=== PATIENT | male | born 1960 | race Caucasian/White ===

== ENCOUNTER 2018-11-08 07:14 | Inpatient (IN) | payer OTHER ==
[2018-11-08 08:58] LABS: CKMB 74.9 ng/mL (0-6.6)
[2018-11-08] MEDS ORDERED: Cepastat Lozenges 1 LOZ PO PRN (10:25)
[2018-11-08] MEDS ORDERED: Zolpidem Tartrate 5 MG TAB PO PRN (10:25)
[2018-11-08] MEDS ORDERED: HYDROcodone/Acetaminophen 5/325 mg Tablet PO PRN (10:25)
[2018-11-08] MEDS ORDERED: Ondansetron ODT 4 MG TAB PO PRN (10:25)
[2018-11-08] MEDS ORDERED: Artificial Tears 18 DROP/0.9 ML EA EYE PRN (10:25)
[2018-11-08] MEDS ORDERED: Ondansetron PF 4 MG/2 ML Vial IVP PRN (10:25)
[2018-11-08] MEDS ORDERED: Acetaminophen 325 MG TAB PO PRN (10:25)
[2018-11-08] MEDS ORDERED: Nitroglycerin 0.4 MG TAB (25 Tab Bottle) SL PRN ×2 (10:25→17:44)
[2018-11-08] MEDS ORDERED: Loratadine 10 MG TAB PO PRN (10:25)
[2018-11-08] MEDS ORDERED: Diabetic Tussin 200 MG/10 ML UDCUP PO PRN (10:25)
[2018-11-08] MEDS ORDERED: Eucerin (Mineral Oil/Petrolatum,White) 30 gm Jar TOP PRN (10:25)
[2018-11-08] MEDS ORDERED: hydrALAZINE 20 MG/ML VIAL SLOW IVP PRN (10:25)
[2018-11-08] MEDS ORDERED: Sodium Chloride 0.65% Nasal 44 ML BOT EA NARE PRN (10:25)
[2018-11-08] MEDS ORDERED: Senokot S 8.6-50 MG TAB PO PRN (10:25)
[2018-11-08] MEDS ORDERED: Bisacodyl 10 MG SUPP PR PRN (10:25)
[2018-11-08] MEDS ORDERED: Calcium Carbonate 500 MG ChewTAB PO PRN (10:25)
[2018-11-08] MEDS ORDERED: Loperamide HCl 2 MG CAP PO PRN (10:25)
[2018-11-08] MEDS ORDERED: Enoxaparin Sodium 80 MG/0.8 ML SYRINGE SC SCH ×3 (10:30→21:00)
[2018-11-08] MEDS ORDERED: Iopamidol 370 76% 100 ML VIAL ONE (10:52)
--- NOTE | 2018-11-08 11:02 | HP ---
PRIMARY CARE PHYSICIAN: [facility]. His primary care physician is in [place], [place]. REASON FOR ADMISSION: Transferred from [facility] [facility] for [id number] MD. HISTORY OF PRESENT ILLNESS: A 57-year-old male, who has underlying history of hypertension as well as tobacco abuse disorder, who was having chest pain yesterday at 3:00 p.m. 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 After eating his lunch, he was having substernal chest pain, which he describes as a hollow feeling and it was dull persistent pain as well. He did not have any associated nausea, vomiting, diaphoresis, but he started feeling radiation of this pain to the left arm. He felt himself having had headache, but he was waiting to get better. He did not have any belching. He did not have any acid reflux symptoms. He denied any palpitation, dizziness, syncope, or shortness of breath, orthopnea, PND. Initially, his intensity of pain was around 5 to 7/10, which was persistent on and off up until 3:00 a.m. He decided to go to local emergency room in [place]. He drove by himself there. The patient was not able to sleep because of this discomfort. At [facility], his EKG showed incomplete right bundle-branch block pattern. His troponin was elevated and subsequently, he was given Lovenox, aspirin and nitroglycerin, and the patient was transferred to our hospital for further evaluation. In the emergency room, he was not having any further pain. The patient is heavy smoker and he has just stopped smoking this morning. He denies any other alcohol or illicit drug abuse. REVIEW OF SYSTEMS: CONSTITUTIONAL: Negative for weight loss or gain, ability to conduct usual activities. SKIN: Negative for rash, itching. EYES: Negative for double vision, pain. ENT/MOUTH: Negative for nose bleeding, neck stiffness, pain, tenderness. CARDIOVASCULAR: Negative for palpitations, dyspnea on exertion, orthopnea. RESPIRATORY: Negative for shortness of breath, wheezing, cough, hemoptysis, fever or night sweats. GASTROINTESTINAL: Negative for poor appetite, abdominal pain, heartburn, nausea, vomiting, constipation, or diarrhea. GENITOURINARY: Negative for urgency, frequency, dysuria, nocturia. MUSCULOSKELETAL: Negative for pain, swelling. NEUROLOGIC/PSYCHIATRIC: Negative for anxiety, depression. ALLERGY/IMMUNOLOGIC: Negative for skin rash, bleeding tendency. Please see my HPI for pertinent positives and negatives. All other review of systems reviewed and negative except as mentioned in HPI. PAST MEDICAL HISTORY: Hypertension, tobacco abuse disorder. PAST SURGICAL HISTORY: Herniated disk surgery in 1985. PAST PSYCHIATRIC HISTORY: Reviewed and negative. SOCIAL HISTORY: The patient is . He lives at home with his . He smokes about one pack per day. 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 He denies any alcohol or other illicit drug abuse. FAMILY HISTORY: His sister from cancer. His grandfather had heart attack in his old age. His mother from old age as well as his father had a motor vehicle accident. EMERGENCY ROOM COURSE: At [facility], the patient was given Lovenox 1 mg/kg, aspirin and nitroglycerin. CURRENT HOME MEDICATION: The patient is taking one antihypertensive medication, but he is not able to recall the name of medication. ALLERGIES: NO KNOWN DRUG ALLERGY. PHYSICAL EXAMINATION: VITAL SIGNS: On arrival, blood pressure 128/83, pulse 58, respiratory rate 16, temperature 98.1 saturation 96% on room air. Weight 85.7 kg. GENERAL: The patient is currently alert, awake, in no obvious acute distress. HEENT: Head; normocephalic, atraumatic. Eyes; pupils round, reactive to light. Extraocular muscle intact. ENT; oropharynx within normal limits. Moist mucous membranes. No oral lesion. No pharyngeal erythema. No exudate. NECK: Supple. No JVD. No thyromegaly. No carotid bruit. LUNGS: Clear to auscultation without any rhonchi or rales. CARDIAC: S1, S2 regular. No murmur. No gallop. No rub. ABDOMEN: Soft bowel sounds present. Nontender. Nondistended. No organomegaly. No mass. No suprapubic tenderness. BACK EXAMINATION: Unremarkable. No CVA tenderness. EXTREMITIES: Upper extremities, passive movement of all joints are normal. Lower extremity, no edema. No calf tenderness. Good distal pulsation. SKIN: No skin rash. HEMATOLOGICAL SYSTEM: No lymphadenopathy. PSYCHIATRIC: Normal affect. SIGNIFICANT LABORATORY DATA: EKG showing sinus bradycardia, incomplete right bundle-branch block pattern. Chest x-ray done over there, it was unremarkable. Blood test at [facility] showed sodium 139, potassium 3.8, chloride 105, carbon dioxide 23, BUN 18, creatinine 1.0, glucose 105. LFT, AST 26, ALT 24, alkaline phosphatase 72, bilirubin 0.5, albumin 4.4, protein 7.1. CBC; WBC 13.6, hemoglobin 17.2, platelet 212. Troponin 0.905. ASSESSMENT AND PLAN: 1. Dcy-TI-yxqbijbvx myocardial infarction. The patient's clinical history is consistent with typical anginal pain with elevated cardiac enzymes associated with mild ST-T changes consistent with non-ST elevation MD. At this point, the patient has been appropriately treated in [place] with aspirin, Lovenox and nitroglycerin patch, and currently patient is pain free. We will continue with Lovenox 1 mg/kg subcu twice daily. We will consult Cardiology for possible need of cardiac catheterization either today or tomorrow. We will obtain echocardiography. Meanwhile, we will continue with aspirin 325 mg p.o. daily, nitroglycerin patch q.8 hourly, Lipitor 40 mg p.o. at bedtime. Check lipid profile tomorrow morning for risk stratification. Healthy lifestyle measure discussed with the patient. 2. Hypertension, currently well controlled. Currently, patient has nitroglycerin patch as well as we are starting Coreg 6.25 mg p.o. b.i.d. 3. Tobacco abuse disorder. Smoking cessation counseling given. Healthy lifestyle measure discussed with the patient. 4. Deep venous thrombosis prophylaxis. The patient is already on full dose of Lovenox therapy. 5. Gastrointestinal prophylaxis. Pepcid 20 mg p.o. b.i.d. CODE STATUS: The patient is full code. The patient's is surrogate decision maker. DISPOSITION PLAN: Based on clinical course, likely 2 to 3 days. Job ID: [id number]
[2018-11-08 11:12] LABS: #Basophils 0.1 thou/uL (0.0-0.2); #Eosinphils 0.1 thou/uL (0.0-0.7); #Lymphocytes 3.1 thou/uL (1.20-3.40); #Monocytes 0.9 thou/uL (0.11-0.59); #Neutrophils 8.5 thou/uL (1.40-6.50); %Basophils 0.5 % (0.0-1.0); %Eosinophils 0.6 % (0.0-10.0); %Lymphocytes 24.3 % (21.0-51.0); %Monocytes 6.7 % (0.0-10.0); %Neutrophils 67.8 % (42.0-75.0); Hemoglobin 16.1 g/dL (14.0-18.0); Mean Corpuscular HGB CONC 33.4 g/dL (32.0-36.0); Mean Corpuscular Hemoglobin 30.6 pg (27.0-31.0); Mean Corpuscular Volume 91.7 fL (78.0-98.0); Mean Platelet Volume 7.4 fL (7.4-10.4); Platelet Count 201 thou/uL (130-400); RBC Distribution Width 11.9 % (11.5-14.5); Red Blood Cell (RBC) Count 5.25 mill/uL (4.70-6.10); White Blood Cell (WBC) Count 12.6 thou/uL (4.8-10.8)
[2018-11-08] MEDS ORDERED: Aspirin 325 mg Enteric Coated Tablet PO SCH (11:15)
[2018-11-08 11:37] LABS: ALT (SGPT) 25 U/L (8-55); AST (SGOT) 59 U/L (5-34); Albumin 4.1 g/dL (3.5-5.0); Alkaline Phosphatase 51 U/L (40-150); Anion Gap 11 mmol/L (10-20); BUN (Urea Nitrogen) 15 mg/dL (8.4-25.7); Bilirubin, Total 0.6 mg/dL (0.2-1.2); Calc. Creatinine Clearance 0 mL/min (70-130); Calcium 9.3 mg/dL (7.8-10.44); Carbon Dioxide 28 mmol/L (22-29); Chloride 105 mmol/L (98-107); Estimated GFR-MDRD 80; Globulin 2.3 g/dL (2.4-3.5); Glucose 97 mg/dL (70-105); Potassium 4.6 mmol/L (3.5-5.1); Protein, Total 6.4 g/dL (6.0-8.3); Sodium 139 mmol/L (136-145)
[2018-11-08 11:49] LABS: Troponin I 7.777 ng/mL (< 0.028)
[2018-11-08] MEDS ORDERED: Atorvastatin Calcium 40 MG TAB PO SCH ×2 (12:33→21:00)
[2018-11-08] MEDS ORDERED: Communication Order-Pharmacy FS SCH (15:00)
[2018-11-08] MEDS: Nitroglycerin 2% Ointment 1 INCH/1 GM Packet TOP SCH ×2 (15:22→20:44)
[2018-11-08] MEDS: Carvedilol 3.125 MG TAB PO SCH (16:49)
[2018-11-08] MEDS ORDERED: Carvedilol 6.25 MG TAB PO SCH (17:00)
[2018-11-08] MEDS ORDERED: Midazolam HCl 2 mg/2 ml Vial ONE (17:11)
[2018-11-08] MEDS ORDERED: Acetaminophen/Codeine 30-300mg Tablet PO PRN ×2 (17:44)
[2018-11-08] MEDS ORDERED: Sodium Chloride 0.9% 200 ML IV PRN (17:44)
[2018-11-08] MEDS ORDERED: Communication Order-Pharmacy FS ONE (18:26)
--- NOTE | 2018-11-08 18:52 | RAD ---
PORTABLE CHEST: 11/08/18 HISTORY: Preop open heart surgery. Heart size and mediastinum are within normal limits. The lungs are clear of infiltrates. No signs of failure. IMPRESSION: No active intrathoracic disease. POS: [facility]
[2018-11-08] MEDS ORDERED: Famotidine 20 MG TAB PO SCH (21:00)
--- NOTE | 2018-11-08 21:17 | CON ---
DATE OF CONSULTATION: 11/08/2018 HISTORY OF PRESENT ILLNESS: Mr. Putnam is a 57-year-old gentleman who was admitted this afternoon with chest pain, pressure, shortness of breath, and a non-ST elevation myocardial infarction. He received aspirin and 300 mg of Plavix and Lovenox at the [place] [facility]. He was transferred here for further therapy. He underwent cardiac catheterization on arrival. 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 He has a bypassable distal right/PDA target. He has at the LAD bifurcation approximately 80% lesion in the LAD and the diagonal. Both these arteries should be bypassable. EF on VGram is approximately 60%. I have discussed this with Dr. Deluna and reviewed the films with him. PAST MEDICAL HISTORY: 1. Hypertension. 2. Tobacco abuse. PAST SURGICAL HISTORY: Back surgery. CURRENT MEDICATIONS: Amlodipine 5 mg daily. ALLERGIES: NONE. 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 He is . He smokes 1 pack to 2 packs of cigarettes a day. REVIEW OF SYSTEMS: A 10-point review of systems is performed and negative except as above. PHYSICAL EXAMINATION: GENERAL: This is a well-developed, well-nourished, thin gentleman, resting comfortably in bed. VITAL SIGNS: Height 63 inches, weight 180 pounds. BSA is 2.08. HEENT: Sclerae nonicteric. Pupils are equal and round bilaterally. NECK: Supple without bruit. CHEST: Clear bilaterally with distant breath sounds. HEART: Rhythm is regular without murmur. ABDOMEN: Soft and nontender with no masses. EXTREMITIES: No cyanosis, clubbing, or edema. VASCULAR: He has palpable carotid radial, femoral, dorsalis pedis pulses bilaterally. VENOUS: There are no venous varicosities or venous stasis changes. PSYCHIATRIC : The patient is awake, alert, and oriented to person, place, and time. LABORATORY DATA: Of note, hemoglobin is 16.1, platelet count is 201,000. Potassium is 4.6, creatinine is 0.96. The peak troponin is 7.77. ASSESSMENT AND PLAN: This is a 57-year-old gentleman status post non-ST- elevation myocardial infarction. Risks, benefits and options of coronary bypass grafting have been discussed with him. He was given 300 mg of Plavix in [place]-I do not think it is prudent to wait the seven day wait for Plavix as he is at risk for further infarct events. I have discussed this with the patient and family. We will proceed tomorrow with coronary artery bypass grafting. Job ID: [id number] MTDD
--- NOTE | 2018-11-09 00:06 | CON ---
DATE OF CONSULTATION: 11/08/2018 HISTORY OF PRESENT ILLNESS: The patient is a 57-year-old gentleman, who presents for evaluation of chest discomfort. The patient has no previous cardiac history. He was in his usual state of health when he developed substernal chest discomfort. He states it lasted throughout the day and he eventually came to the emergency room. The patient eventually went to the emergency room in [place]. His chest pain resolved. He was transferred here for further evaluation. The patient denies having any present chest discomfort. PAST MEDICAL HISTORY: Hypertension. PAST SURGICAL HISTORY: None. SOCIAL HISTORY: The patient smokes one pack per day. ALLERGIES: NO KNOWN DRUG ALLERGIES. FAMILY HISTORY: No strong family history of coronary artery disease. REVIEW OF SYSTEMS: Ten-point system otherwise unremarkable. No history of easy bruising or bleeding. PHYSICAL EXAMINATION: GENERAL: Well-developed gentleman, in no acute distress. VITAL SIGNS: Blood pressure of 119/77. NECK: No jugular venous distention. LUNGS: Clear to auscultation. HEART: Regular rate and rhythm. Normal S1, S2. ABDOMEN: Nondistended. EXTREMITIES: Show no edema. SKIN: Warm and dry. NEUROLOGIC: Nonfocal. VASCULAR: Radial pulses 2+. LABORATORY RESULTS: Sodium 139, potassium 3.8, chloride 105, bicarbonate 23, BUN 18, creatinine is 1.0, glucose is 105. White blood cell count 13.6, hemoglobin 17.2, hematocrit 49.8, platelets 212. EKG revealed normal sinus rhythm with incomplete right bundle branch block. IMPRESSION: 1. Non-Q-wave myocardial infarction. 2. Hypertension. 3. Tobacco abuse. This gentleman presents with a non-Q-wave myocardial infarction. The patient has been treated with aspirin, Plavix, and Lovenox. The patient will undergo an invasive evaluation during this hospitalization to evaluate the extent of his coronary artery disease. The patient will also be treated with low-dose beta- babita. We will follow this patient with you. Job ID: [id number] MTDD
[2018-11-09] MEDS: Nitroglycerin 2% Ointment 1 INCH/1 GM Packet TOP SCH (05:10)
[2018-11-09] MEDS: Carvedilol 3.125 MG TAB PO SCH (05:10)
[2018-11-09 05:38] LABS: Cardiac Risk 5.2 (Less than 4.5)
[2018-11-09] MEDS ORDERED: Midazolam HCl 5 mg/5 ml Vial ONE ×2 (06:34→10:01)
[2018-11-09] MEDS ORDERED: Fentanyl 100 MCG/2 ML VIAL ONE (06:34)
[2018-11-09] MEDS ORDERED: Midazolam HCl 2 mg/2 ml Vial ONE (06:34)
[2018-11-09] MEDS ORDERED: Dexmedetomidine 200 MCG/2 ML VIAL ONE (06:35)
[2018-11-09] MEDS ORDERED: Vecuronium 10 MG VIAL ONE ×2 (06:35→13:47)
[2018-11-09] MEDS ORDERED: Aspirin 325 mg Enteric Coated Tablet PO SCH (09:00)
[2018-11-09] MEDS ORDERED: Dexamethasone 4 mg/ml Vial ONE (09:25)
[2018-11-09] MEDS ORDERED: Bupivacaine HCl 0.5%/Epinephrine 1:200,000/PF 30 ml Vial ONE (09:25)
--- NOTE | 2018-11-09 09:44 | PDOC.PN ---
- Subjective Encounter Start Date: 11/09/18 Encounter Start Time: 06:00 Patient seen and examined. No new complaints. No overnight events - Objective Resuscitation Status - Order Detail: 11/08/18 10:25 Resuscitation Status Routine Resuscitation Status: FULL: Full Resuscitation MAR Reviewed: Yes Vital Signs & Weight: Vital Signs (12 hours) Temp Pulse Resp BP Pulse Ox 11/09/18 03:19 98.1 F 71 16 105/68 94 L 11/09/18 00:00 98.2 F 62 18 106/63 93 L Weight Weight 178 lb 4.8 oz I&O: 11/08/18 11/09/18 11/10/18 06:59 06:59 06:59 Intake Total 360 Output Total 400 Balance -40 Result Diagrams: 11/08/18 11:02 11/08/18 11:02 Additional Labs: Accuchecks 11/09/18 11/09/18 11/09/18 09:35 08:44 08:18 POC Glucose 163 H 156 H 135 H EKG Reviewed by me: Yes (nsr) Phys Exam - Physical Examination Constitutional: NAD HEENT: PERRLA, moist MMs, sclera anicteric Neck: no JVD, supple Respiratory: no wheezing, no rales, no rhonchi Cardiovascular: RRR, no significant murmur, no rub Gastrointestinal: soft, non-tender, no distention, positive bowel sounds Musculoskeletal: no edema, pulses present Neurological: non-focal, normal sensation, moves all 4 limbs Lymphatic: no nodes Psychiatric: normal affect, A&O x 3 Skin: no rash, normal turgor Dx/Plan (1) CAD (coronary artery disease) Code(s): I25.10 - ATHSCL HEART DISEASE OF [place] CORONARY ARTERY W/O ANG PCTRS Status: Acute (2) NSTEMI (non-ST elevated myocardial infarction) Code(s): I21.4 - NON-ST ELEVATION (NSTEMI) MYOCARDIAL INFARCTION Status: Acute (3) Dyslipidemia Code(s): E78.5 - HYPERLIPIDEMIA, UNSPECIFIED Status: Chronic (4) Hypertension Code(s): I10 - ESSENTIAL (PRIMARY) HYPERTENSION Status: Chronic (5) Tobacco abuse Code(s): Z72.0 - TOBACCO USE Status: Chronic - Plan cont current plan of care * CABG today * after CABG continue post cabg protocol management as per CV surgery and cardiology * medication reviewed as below * symptomatic treatment. Review of Systems - Review of Systems ENT: negative: Ear Pain, Ear Discharge, Nose Pain, Nose Discharge, Nose Congestion, Mouth Pain, Mouth Swelling, Throat Pain, Throat Swelling, Other Respiratory: negative: Cough, Dry, Shortness of Breath, Hemoptysis, SOB with Excertion, Pleuritic Pain, Sputum, Wheezing Cardiovascular: negative: chest pain, palpitations, orthopnea, paroxysmal nocturnal dyspnea, edema, light headedness, other Gastrointestinal: negative: Nausea, Vomiting, Abdominal Pain, Diarrhea, Constipation, Melena, Hematochezia, Other Genitourinary: negative: Dysuria, Frequency, Incontinence, Hematuria, Retention , Other Musculoskeletal: negative: Neck Pain, Shoulder Pain, Arm Pain, Back Pain, Hand Pain, Leg Pain, Foot Pain, Other - Medications/Allergies Allergies/Adverse Reactions: Allergies Allergy/AdvReac Type Severity Reaction Status Date / Time No Known Drug Allergies Allergy Verified 11/08/18 15:19 Medications: Current Medications Carvedilol (Coreg) 3.125 mg PO BID-[facility] Stop: 11/09/18 10:00 Last Admin: 11/09/18 05:10 Dose: 3.125 mg
[2018-11-09] MEDS ORDERED: Propofol 1,000 MG/100 ML VIAL IV ONE ×2 (10:01→10:30)
[2018-11-09] MEDS ORDERED: PHENYLEPHRINE-NS 100 MCG/ML 10 ML SYRINGE ONE ×3 (10:30→13:47)
[2018-11-09] MEDS ORDERED: Albumin 25% 200 ML ONE (10:36)
[2018-11-09] MEDS ORDERED: Insulin Regular 300 UNITS/3 ML VIAL ONE ×2 (10:42→15:15)
[2018-11-09] MEDS ORDERED: Phenylephrine HCL 10 MG/ML VIAL ONE (11:58)
[2018-11-09] MEDS ORDERED: Amiodarone 150 MG/3 ML VIAL ONE (11:58)
[2018-11-09] MEDS ORDERED: Dexamethasone 20 MG/5 ML VIAL ONE (13:47)
[2018-11-09] MEDS ORDERED: Sodium Bicarb 50 MEQ/50 ML VIAL ONE ×2 (13:47)
[2018-11-09] MEDS ORDERED: Heparin 30,000 units/30 ml VIAL ONE (13:47)
[2018-11-09] MEDS ORDERED: Magnesium 5 GM/10 ML VIAL ONE ×2 (13:47)
[2018-11-09] MEDS ORDERED: Heparin 5,000 UNITS/ML VIAL ONE (13:47)
[2018-11-09] MEDS ORDERED: PROPOFOL 200 MG/20 ML VIAL ONE (13:47)
[2018-11-09] MEDS ORDERED: Lidocaine 2% PF 100 mg/5 ml Syringe ONE ×2 (13:47)
[2018-11-09] MEDS ORDERED: Esmolol 100 MG/10 ML VIAL ONE (13:47)
[2018-11-09] MEDS ORDERED: Cardioplegic Soln 1,000 ML BAG ONE (13:47)
[2018-11-09] MEDS ORDERED: Potassium Chloride 60 MEQ/30 ML VIAL ONE (13:47)
[2018-11-09] MEDS ORDERED: Calcium Chloride 1 GM/10 ML Abboject SYRINGE ONE (13:47)
[2018-11-09] MEDS ORDERED: Dextrose 50% Abboject 50 ML SYRINGE ONE (13:47)
[2018-11-09] MEDS ORDERED: Albumin 25% 25 GM/100 ML BOT ONE (13:47)
[2018-11-09] MEDS ORDERED: Papaverine 60 MG/2 ML VIAL ONE (13:47)
[2018-11-09] MEDS ORDERED: Thrombin 5000 UNITS/5 ML VIAL ONE (13:47)
[2018-11-09] MEDS ORDERED: ePHEDrine 50 MG/ML VIAL ONE (13:47)
[2018-11-09] MEDS ORDERED: Mannitol 12.5 GM/50 ML ONE ×2 (13:47)
[2018-11-09] MEDS ORDERED: Norepinephrine 4 MG/4 ML VIAL ONE (13:47)
[2018-11-09] MEDS ORDERED: Nitroglycerin 50 MG/250 ML BOT ONE (13:47)
[2018-11-09] MEDS ORDERED: Protamine Sulfate 250 MG/25 ML VIAL ONE ×2 (13:47)
[2018-11-09] MEDS ORDERED: Aminocaproic Acid 5 GM/20 ML VIAL ONE (13:47)
[2018-11-09 14:22] LABS: Actual Bicarbonate (HCO3a) 27.1 mEq/L (22-28); Base Excess (BEa) 0.1 mEq/L (-2.0 to +3.0); CO2 Tension 56.3 mmHg (35.0-45.0); Calcium, Ionized 0.99 mmol/L (1.12-1.30); Carboxyhemoglobin (COHb) 1.1 gm% (0.0-3.0); Hemoglobin (Hb) 10.6 g/dL (14.0-18.0); O2 Tension (PaO2) 89.3 mmHg (80.0-100.0); Potassium - ABG Lab 4.15 mmol/L (3.70-5.30)
[2018-11-09 14:27] LABS: Puncture Site LINE
[2018-11-09 14:28] LABS: ALV-art Gradient 125.525 (0-20)
[2018-11-09] MEDS ORDERED: HYDROcodone/Acetaminophen 5/325 mg Tablet PO PRN (14:51)
[2018-11-09] MEDS ORDERED: Norepinephrine 8 MG/0.9% NS 250 ML IVPB PRN (14:51)
[2018-11-09] MEDS ORDERED: Nitroglycerin 50 MG/250 ML BOT 250 ML IVPB PRN (14:51)
[2018-11-09] MEDS ORDERED: Promethazine HCl 25 MG/ML VIAL IM PRN (14:51)
[2018-11-09] MEDS ORDERED: Fentanyl 100 MCG/2 ML VIAL SLOW IVP PRN ×2 (14:51)
[2018-11-09] MEDS ORDERED: Bisacodyl 10 MG SUPP PR PRN (14:51)
[2018-11-09] MEDS ORDERED: CEFAZOLIN/Water 2 GM/20 ML SYRINGE SLOW IVP SCH (14:51)
[2018-11-09] MEDS ORDERED: Guaifenesin DM 100-10/5 ML UDCUP PO PRN (14:51)
[2018-11-09] MEDS ORDERED: Ondansetron PF 4 MG/2 ML Vial IVP PRN (14:51)
[2018-11-09] MEDS ORDERED: Hetastarch 6% 500 ML 500 ML IVPB PRN (14:51)
[2018-11-09] MEDS ORDERED: niCARdipine HCl 25 MG in Sodium Chloride 0.9% 250 ML 240 ML IVPB PRN (14:51)
[2018-11-09] MEDS ORDERED: Mag-Al 1200 mg/1200 mg/30 ML UDCUP PO PRN (14:51)
[2018-11-09] MEDS ORDERED: Morphine 2 MG/ML SYRINGE SLOW IVP PRN (14:51)
[2018-11-09] MEDS ORDERED: D5 1/2 NS w/20 mEq KCL 1,000 ML IV SCH (14:51)
[2018-11-09] MEDS ORDERED: Acetaminophen 325 MG TAB PO PRN (14:51)
[2018-11-09] MEDS ORDERED: Post-Op Insulin Drip Protocol IVPB ONE (14:51)
[2018-11-09 15:16] LABS: #Eosinphils 0.1 thou/uL (0.0-0.7); #Lymphocytes 1.1 thou/uL (1.20-3.40); #Monocytes 1.2 thou/uL (0.11-0.59); %Eosinophils 0.6 % (0.0-10.0); %Lymphocytes 7.2 % (21.0-51.0); %Monocytes 7.5 % (0.0-10.0); %Neutrophils 84.6 % (42.0-75.0); Hemoglobin 9.9 g/dL (14.0-18.0); Mean Corpuscular HGB CONC 33.9 g/dL (32.0-36.0); Mean Corpuscular Hemoglobin 31.3 pg (27.0-31.0); Mean Corpuscular Volume 92.5 fL (78.0-98.0); Mean Platelet Volume 7.4 fL (7.4-10.4); Platelet Count 128 thou/uL (130-400); RBC Distribution Width 11.8 % (11.5-14.5); Red Blood Cell (RBC) Count 3.16 mill/uL (4.70-6.10); White Blood Cell (WBC) Count 15.4 thou/uL (4.8-10.8)
[2018-11-09] MEDS ORDERED: D5 1/2 NS w/20 mEq KCL 1,000 ML ONE (15:17)
[2018-11-09 15:21] LABS: INR-International Normal Ratio 1.5; PTT 42.4 SEC (22.9-36.1); Prothrombin Time 17.9 SEC (12.0-14.7)
[2018-11-09 15:30] LABS: Anion Gap 13 mmol/L (10-20); BUN (Urea Nitrogen) 14 mg/dL (8.4-25.7); Calc. Creatinine Clearance 89 mL/min (70-130); Calcium 7.4 mg/dL (7.8-10.44); Carbon Dioxide 24 mmol/L (22-29); Chloride 109 mmol/L (98-107); Estimated GFR-MDRD 73; Glucose 149 mg/dL (70-105); Potassium 4.3 mmol/L (3.5-5.1); Sodium 142 mmol/L (136-145)
[2018-11-09] MEDS ORDERED: Dextrose 5% in Water 1,000 ML IV PRN (15:31)
[2018-11-09] MEDS ORDERED: Dextrose 50% Abboject 50 ML SYRINGE SLOW IVP PRN (15:31)
[2018-11-09] MEDS ORDERED: HUMULIN R 100 UNITS in Sodium Chloride 0.9% 100 ML IVPB SCH (15:31)
[2018-11-09] MEDS ORDERED: Magnesium 2 GM/50 ML 2 GM in Premix Bag 1 BAG IVPB SCH (16:00)
[2018-11-09] MEDS: Insulin Regular 300 UNITS/3 ML VIAL SC PRN ×2 (16:09→20:49)
--- NOTE | 2018-11-09 17:27 | OP ---
DATE OF PROCEDURE: 11/09/2018 PREOPERATIVE DIAGNOSES: Coronary artery disease/dyslipidemia/hypertension/ status post ide-HB-[id number] myocardial infarction. POSTOPERATIVE DIAGNOSES: Coronary artery disease/dyslipidemia/hypertension/ status post vlq-VS-vhjksswyb myocardial infarction/type A aortic dissection. PROCEDURES: 1. Coronary artery bypass grafting x3 - Left internal mammary artery in sequence to D2 and LAD. Reverse saphenous vein to PDA. 2. Repair of type A aortic dissection with 24 mm Hemashield tube graft. CO-SURGEON: Lincoln Sal MD. ANESTHESIA: General endotracheal - Dr. Radha Garcia. PUMP TIME: 229 minutes. CROSS-CLAMP TIME: 43 minutes. CIRCULATORY ARREST TIME: 15 minutes. LOW CORE TEMPERATURE: 18 degrees Celsius for circulatory arrest portion of the case. MAKE UP MAN: Wagner Yang. DRIPS: None. TRANSFUSIONS: 4 units of FFP and two platelet packs coming off pump. TOTAL CELL SAVER: 2298 mL. DESCRIPTION OF PROCEDURE: After consent was obtained, the patient was brought to the operating room and placed in supine position on the operating room table. Appropriate lines and monitors were placed and general endotracheal anesthesia was induced. Chest and legs were prepped and draped in usual sterile fashion. A single segment of saphenous vein was harvested from the left groin. Wound was irrigated and closed in layers. Median sternotomy was performed. Left internal mammary artery was harvested as a pedicle graft. The patient was systemically heparinized. Distal pedicle was divided and infused with papaverine. Thymic fat and pericardium were divided with electrocautery. Aortic and atrial cannulation was performed. After adequate heparinization, retrograde priming was performed. The patient was placed on cardiopulmonary bypass. Distal targets were marked. Aortic cross- clamp was applied and antegrade sanguineous cardioplegic arrest was obtained. We encountered no problems with the administration of the cardioplegia. 1200 mL of antegrade cold [place] cardioplegia was given. The patient was difficult to arrest, but eventually did arrest during the initial period of cardioplegia. Saphenous vein was anastomosed to PDA in an end-to-end fashion using 7-0 Prolene suture. At the time of completion of the distal anastomosis, the patient had some slow ventricular fibrillation. We elected to give another 500 mL of cardioplegia. This was given down the graft and also down the aortic root. The mammary artery was anastomosed in a [id number] fashion, the diagonal in end-to-side fashion to the distal LAD. On release, mammary claims good occluding anastomosis and good distal flow. There was good hemostasis. The cross-clamp was removed and the aorta was inspected. At this time, we realized that it was probable that we had an aortic dissection. Dr. Garcia interrogated the aorta with IKE and agreed that we did have a type A dissection. The patient was then cooled to 18 degrees. The left femoral artery was exposed and the femoral artery was cannulated. The arterial perfusion was discontinued from the ascending aorta and moved down to the femoral artery. After the patient's systemic temperature reached 18 degrees Celsius, perfusion was discontinued. Annette dioxide was infused in the pericardial well The aorta was divided and inspected. It appeared that the area of cardioplegia was the culprit of the aortic dissection. The aortic cannulation site was pristine. The distal aorta was divided at the cannulation site. The proximal aorta was divided at the sinotubular junction. A 24 Hemashield graft was sewn in place with pledgeted 3-0 Prolene suture. The distal anastomosis was performed first. The cardiopulmonary bypass was reinstituted with a 15 minute circulatory arrest time. The aorta was allowed to backfill slowly. Once the aorta had been de-aired, the aorta was re-clamped at the distal anastamosis. The graft was cut to appropriate length. Graft was sewn to the aorta at the sinotubular junction with pledgeted running 3-0 Prolene suture. Eye cautery was then used to create a hole in the graft for the proximal venous anastamosis. The saphenous vein was sewn to the eye cautery hole with running 6-0 Prolene suture. De-airing was performed both to the root and through a left ventricular sump drain. After adequate de-airing had been performed, the cross-clamp was removed. On removal of the cross-clamp, we left the perfusion at approximately half flow and multiple pledgeted 3-0 Prolene sutures were placed for hemostasis in the proximal anastomosis of the aorta. After adequate hemostasis had been obtained, the patient was allowed to perfuse and rewarm. The patient was slowly rewarmed back to 36 degrees Celsius. IKE showed a competent aortic valve , good circumfrential ventricular contraction, and no perfusion of the false lumen distally Once systemic temperature reached 36 degrees, bypass was discontinued. Transfusions was given. The patient received 4 unitsFFP and 2 packs of platelets. Decannulation was performed. The venous pursestring suture was secured. Decannulation of the femoral artery was performed and the femoral artery was repaired with a running 5-0 Prolene suture. There was good pulse in the femoral artery post completion. The wound was then irrigated and closed in layers. We spent a lot of time getting hemostasis around the proximal anastomosis utilizing FloSeal and multiple stitches. After adequate hemostasis had been obtained, 24-Somali chest tubes x3 were placed. The sternum was treated with vancomycin paste. Sternum was closed with #7 wire. Sternum was treated with platelet rich plasma. Wires were twisted. Wound was irrigated, treated with platelet poor plasma and closed in multiple layers. Needle, sponge, and instrument counts were all reported as correct at the end of the procedure. The patient was transferred to the intensive care unit in stable critical condition. Job ID: [id number] MTDD
[2018-11-09] MEDS: Ketorolac Tromethamine 30 MG/ML VIAL IVP SCH ×2 (17:35→23:29)
--- NOTE | 2018-11-09 19:02 | RAD ---
FRONTAL VIEW CHEST: INDICATIONS: Status post CABG. COMPARISON: Study from the previous day. FINDINGS: Endotracheal tube and enteric catheter are present, as well as a mediastinal drainage catheter. Ther e is a right subclavian venous catheter. Sternotomy wires are present. There is elevation of the le ft hemidiaphragm with blunting of the left costophrenic sulcus, compatible with pleural fluid/volume loss. Perivascular edema is seen bilaterally. IMPRESSION: 1. Postoperative chest. 2. Mild left pleural fluid/atelectasis present. 3. Evidence of fluid overload. POS: [facility]
[2018-11-09] MEDS: hydrALAZINE 20 MG/ML VIAL SLOW IVP PRN (20:07)
[2018-11-09 20:14] LABS: Hemoglobin 10.8 g/dL (14.0-18.0)
[2018-11-09 20:40] LABS: Potassium 4.1 mmol/L (3.5-5.1)
[2018-11-09] MEDS ORDERED: Famotidine/PF 20 mg/2ml Vial SLOW IVP SCH (21:00)
[2018-11-09] MEDS: CEFAZOLIN 2 GM in Premix Bag 1 BAG IVPB SCH (21:15)
[2018-11-10 05:03] LABS: #Lymphocytes 1.1 thou/uL (1.20-3.40); #Monocytes 1.3 thou/uL (0.11-0.59); #Neutrophils 12.6 thou/uL (1.40-6.50); %Basophils 0.1 % (0.0-1.0); %Eosinophils 0.1 % (0.0-10.0); %Lymphocytes 7.2 % (21.0-51.0); %Monocytes 8.5 % (0.0-10.0); Hemoglobin 9.4 g/dL (14.0-18.0); Mean Corpuscular HGB CONC 33.6 g/dL (32.0-36.0); Mean Corpuscular Hemoglobin 30.9 pg (27.0-31.0); Mean Corpuscular Volume 91.8 fL (78.0-98.0); Mean Platelet Volume 7.9 fL (7.4-10.4); Platelet Count 125 thou/uL (130-400); RBC Distribution Width 11.8 % (11.5-14.5); Red Blood Cell (RBC) Count 3.04 mill/uL (4.70-6.10); White Blood Cell (WBC) Count 14.9 thou/uL (4.8-10.8)
[2018-11-10 05:15] LABS: Anion Gap 11 mmol/L (10-20); BUN (Urea Nitrogen) 20 mg/dL (8.4-25.7); Calc. Creatinine Clearance 64 mL/min (70-130); Calcium 7.7 mg/dL (7.8-10.44); Carbon Dioxide 23 mmol/L (22-29); Chloride 111 mmol/L (98-107); Estimated GFR-MDRD 50; Glucose 137 mg/dL (70-105); Potassium 3.7 mmol/L (3.5-5.1); Sodium 141 mmol/L (136-145)
[2018-11-10] MEDS: Ketorolac Tromethamine 30 MG/ML VIAL IVP SCH (05:20)
[2018-11-10] MEDS: CEFAZOLIN 2 GM in Premix Bag 1 BAG IVPB SCH ×2 (05:21→13:53)
--- NOTE | 2018-11-10 08:09 | RAD ---
CHEST 1 VIEW: HISTORY: Heart surgery. Followup. COMPARISON: 11/09/2018. FINDINGS: Cardiac silhouette is magnified by projection. Pulmonary vasculature upper limits of normal. Medias tinum is midline with postoperative changes. Radiopaque drain and right subclavian central venous ca theter remain in place. Endotracheal catheter and nasogastric tube no longer visible. Mild atelecta sis at the left base is unchanged. No evidence of pneumothorax. IMPRESSION: 1. Interval extubation and removal of the nasogastric tube. 2. Otherwise, stable postoperative appearance of the chest. POS: [facility]
[2018-11-10] MEDS ORDERED: Furosemide 40 MG/4 ML VIAL SLOW IVP SCH (08:15)
[2018-11-10] MEDS ORDERED: Potassium Chloride 20 MEQ in Premix Bag 1 BAG IVPB SCH (08:15)
[2018-11-10] MEDS: Potassium Chloride 20 MEQ/100 ML PREMIX BAG IVPB PRN (08:19)
[2018-11-10] MEDS: HYDROcodone/Acetaminophen 5/325 mg Tablet PO PRN ×3 (08:19→19:27)
[2018-11-10] MEDS: Magnesium 2 GM/50 ML 2 GM in Premix Bag 1 BAG IVPB SCH (08:20)
[2018-11-10] MEDS: Aspirin 325 MG TAB PO SCH (08:24)
[2018-11-10] MEDS: Famotidine 20 MG TAB PO SCH ×2 (08:47→20:08)
--- NOTE | 2018-11-10 12:43 | PDOC.PN ---
- Subjective Encounter Start Date: 11/10/18 Encounter Start Time: 09:45 Patient seen and examined. No new complaints. No overnight events - Objective Resuscitation Status - Order Detail: 11/08/18 10:25 Resuscitation Status Routine Resuscitation Status: FULL: Full Resuscitation MAR Reviewed: Yes Vital Signs & Weight: Vital Signs (12 hours) Temp Pulse Resp Pulse Ox 11/10/18 12:00 98 F 11/10/18 08:00 98.2 F 97 11/10/18 07:50 97 11/10/18 07:49 72 16 97 11/10/18 04:00 98.9 F Weight Admit Weight 193 lb 5.526 oz Weight 178 lb 6.4 oz Most Recent Monitor Data Heart Rate from ECG 72 NIBP 135/48 NIBP BP-Mean 77 Respiration from ECG 21 SpO2 92 I&O: 11/09/18 11/10/18 11/11/18 06:59 06:59 06:59 Intake Total 360 866.8 450 Output Total 400 1810 1010 Balance -40 -943.2 -560 Result Diagrams: 11/10/18 04:40 11/10/18 04:40 Additional Labs: Accuchecks 11/10/18 11/09/18 11/09/18 00:18 20:41 15:02 POC Glucose 118 H 140 H 156 H 11/09/18 11/09/18 13:51 13:21 POC Glucose 157 H 165 H Radiology Reviewed by me: Yes (chest xray reviewed as below) EKG Reviewed by me: Yes (nsr) Phys Exam - Physical Examination Constitutional: NAD HEENT: PERRLA, moist MMs, sclera anicteric Neck: no JVD, supple Respiratory: no wheezing, no rales, no rhonchi surgical site with dressing Cardiovascular: RRR, no significant murmur, no rub chest tube in place Gastrointestinal: soft, non-tender, no distention, positive bowel sounds Musculoskeletal: no edema, pulses present Neurological: non-focal, normal sensation, moves all 4 limbs Psychiatric: normal affect, A&O x 3 Skin: no rash, normal turgor Dx/Plan (1) CAD (coronary artery disease) Code(s): I25.10 - ATHSCL HEART DISEASE OF [place] CORONARY ARTERY W/O ANG PCTRS Status: Acute (2) NSTEMI (non-ST elevated myocardial infarction) Code(s): I21.4 - NON-ST ELEVATION (NSTEMI) MYOCARDIAL INFARCTION Status: Acute (3) Dyslipidemia Code(s): E78.5 - HYPERLIPIDEMIA, UNSPECIFIED Status: Chronic (4) Hypertension Code(s): I10 - ESSENTIAL (PRIMARY) HYPERTENSION Status: Chronic (5) Tobacco abuse Code(s): Z72.0 - TOBACCO USE Status: Chronic (6) EPIFANIO (acute kidney injury) Code(s): N17.9 - ACUTE KIDNEY FAILURE, UNSPECIFIED Status: Acute (7) Anemia associated with acute blood loss Code(s): D62 - ACUTE POSTHEMORRHAGIC ANEMIA Status: Acute (8) S/P CABG x 3 Code(s): Z95.1 - PRESENCE OF AORTOCORONARY BYPASS GRAFT Status: Acute - Plan cont current plan of care * medication reviewed as below * symptomatic treatment * continue post cabg care as per cv surgery for now. Review of Systems - Review of Systems ENT: negative: Ear Pain, Ear Discharge, Nose Pain, Nose Discharge, Nose Congestion, Mouth Pain, Mouth Swelling, Throat Pain, Throat Swelling, Other Respiratory: negative: Cough, Dry, Shortness of Breath, Hemoptysis, SOB with Excertion, Pleuritic Pain, Sputum, Wheezing Cardiovascular: negative: chest pain, palpitations, orthopnea, paroxysmal nocturnal dyspnea, edema, light headedness, other Gastrointestinal: negative: Nausea, Vomiting, Abdominal Pain, Diarrhea, Constipation, Melena, Hematochezia, Other Genitourinary: negative: Dysuria, Frequency, Incontinence, Hematuria, Retention , Other Musculoskeletal: negative: Neck Pain, Shoulder Pain, Arm Pain, Back Pain, Hand Pain, Leg Pain, Foot Pain, Other - Medications/Allergies Allergies/Adverse Reactions: Allergies Allergy/AdvReac Type Severity Reaction Status Date / Time No Known Drug Allergies Allergy Verified 11/08/18 15:19 Medications: Current Medications Acetaminophen (Tylenol) 650 mg PO Q6H PRN PRN Reason: Headache/Fever Or Mild Pain Hydrocodone Bitart/Acetaminophen ([place] 5/325) 1 tab PO Q4H PRN PRN Reason: Moderate Pain (4-6) Hydrocodone Bitart/Acetaminophen ([place] 5/325) 2 tab PO Q4H PRN PRN Reason: Severe Pain (7-10) Last Admin: 11/10/18 08:19 Dose: 2 tab Al Hydroxide/Mg Hydroxide (Maalox) 30 ml PO Q4H PRN PRN Reason: Indigestion Albumin Human (Albumin 5%) 12.5 gm IVPB Q6H PRN PRN Reason: To Maintain SBP> 90 mmHG Stop: 11/10/18 14:52 Albumin Human (Albumin 5%) 25 gm IVPB Q6H PRN PRN Reason: To Maintain SBP > 90 mmHG Stop: 11/10/18 14:52 Albuterol/Ipratropium (Duoneb) 3 ml NEB [id number] [facility] Last Admin: 11/10/18 07:49 Dose: 3 ml Albuterol/Ipratropium (Duoneb) 3 ml NEB [id number] PRN PRN Reason: SHORTNESS OF BREATH Aspirin (Aspirin) 325 mg PO DAILY [facility] Last Admin: 11/10/18 08:24 Dose: 325 mg Bisacodyl (Dulcolax) 10 mg PO Q12H PRN PRN Reason: Constipation Bisacodyl (Dulcolax) 10 mg [place] Q12H PRN PRN Reason: Constipation Carvedilol (Coreg) 3.125 mg PO BID-[facility] Famotidine (Pepcid) 20 mg PO BID [facility] Last Admin: 11/10/18 08:47 Dose: 20 mg Fentanyl (Sublimaze) 25 mcg SLOW IVP Q2H PRN PRN Reason: Moderate Pain (4-6) Stop: 11/11/18 14:08 Fentanyl (Sublimaze) 50 mcg SLOW IVP Q2H PRN PRN Reason: Severe Pain (7-10) Stop: 11/11/18 14:08 Guaifenesin/Dextromethorphan (Robitussin Dm) 15 ml PO Q4H PRN PRN Reason: Cough Hydralazine HCl (Apresoline) 10 mg SLOW IVP Q6H PRN PRN Reason: To Maintain SBP< 140mmHG Last Admin: 11/09/18 20:07 Dose: 10 mg Hetastarch/Sodium Chloride (Hespan) 500 mls @ 0 mls/hr IVPB PRN PRN PRN Reason: To Maintain SBP > 90mmHg Stop: 11/10/18 14:08 Magnesium Sulfate 2 gm/ Device 50 mls @ 100 mls/hr [facility] Stop: 11/11/18 09:29 Last Admin: 11/10/18 08:20 Dose: 50 mls Cefazolin Sodium/Dextrose 2 gm (/ Device) 50 mls @ 100 mls/hr IVPB Q8HR [facility] Stop: 11/10/18 14:29 Last Admin: 11/10/18 05:21 Dose: 50 mls Morphine Sulfate (Morphine) 2 mg SLOW IVP Q15MIN PRN PRN Reason: Severe Pain (7-10) Ondansetron HCl (Zofran) 4 mg IVP Q6H PRN PRN Reason: Nausea/Vomiting Potassium Chloride (Kcl) 20 meq IVPB PRN PRN PRN Reason: K level </= 4.0 Last Admin: 11/10/18 08:19 Dose: 20 meq Promethazine HCl (Phenergan) 6.25 mg IM Q4H PRN PRN Reason: Nausea/Vomiting Rosuvastatin Calcium (Crestor) 20 mg PO HS [facility] Sodium Chloride (Flush - Normal Saline) 10 ml IVF PRN PRN PRN Reason: Saline Flush
[2018-11-10] MEDS: Carvedilol 3.125 MG TAB PO SCH (17:22)
[2018-11-10] MEDS: Rosuvastatin 20 MG TAB PO SCH (20:08)
--- NOTE | 2018-11-11 00:53 | CON ---
DATE OF CONSULTATION: HISTORY OF PRESENT ILLNESS: Mr. Putnam is a very pleasant gentleman, who has undergone coronary artery bypass grafting. I have seen him in the perioperative period. He has been weaned per protocol from mechanical ventilation. He has no complaints other than chest discomfort where his sternal incision is. PAST MEDICAL HISTORY: Remarkable only for; 1. Hypertension. 2. The patient is a pack-a-day smoker. ALLERGIES: THERE IS NO HISTORY OF ALLERGIES. FAMILY HISTORY: Negative for lung disease in early age. REVIEW OF SYSTEMS: 10 points are otherwise negative. PHYSICAL EXAMINATION: GENERAL: He is a very pleasant gentleman. VITAL SIGNS: Heart rate is 80, blood pressure 140/55, respiratory rate is 22, oximetry is 92. EYES: Pupils are equal. Sclerae are anicteric. NECK: Supple. LUNGS: Clear. HEART: Regular rhythm. S1 and S2 are normal. ABDOMEN: Soft and nontender. EXTREMITIES: Without clubbing, cyanosis, or edema. LABORATORY DATA: White count 14.9, hemoglobin 9.4, platelets 125. Sodium 141, potassium 3.7, chloride 111, bicarb 23, BUN 20, creatinine 1.44, glucose 137. PH 7.3, CO2 of 56, PO2 of 89. IMPRESSION: 1. Status post coronary artery bypass grafting, clinically stable. 2. Tobacco history with no history clinically of chronic obstructive pulmonary disease. PLAN: Continue supportive care per postop protocol. TIME SPENT: This is a 70-minute consult, 50% of the time was spent on the unit coordinating care. Job ID: [id number]
[2018-11-11] MEDS: HYDROcodone/Acetaminophen 5/325 mg Tablet PO PRN (03:10)
[2018-11-11] MEDS: hydrALAZINE 20 MG/ML VIAL SLOW IVP PRN ×2 (03:11→07:45)
[2018-11-11 05:06] LABS: Anion Gap 12 mmol/L (10-20); BUN (Urea Nitrogen) 22 mg/dL (8.4-25.7); Calc. Creatinine Clearance 77 mL/min (70-130); Calcium 8.1 mg/dL (7.8-10.44); Carbon Dioxide 24 mmol/L (22-29); Chloride 103 mmol/L (98-107); Estimated GFR-MDRD 63; Glucose 121 mg/dL (70-105); Potassium 3.9 mmol/L (3.5-5.1); Sodium 135 mmol/L (136-145)
[2018-11-11 05:10] LABS: #Lymphocytes 2.4 thou/uL (1.20-3.40); #Monocytes 1.5 thou/uL (0.11-0.59); #Neutrophils 11.7 thou/uL (1.40-6.50); %Basophils 0.1 % (0.0-1.0); %Eosinophils 0.1 % (0.0-10.0); %Lymphocytes 15.1 % (21.0-51.0); %Monocytes 9.4 % (0.0-10.0); %Neutrophils 75.3 % (42.0-75.0); Hemoglobin 9.5 g/dL (14.0-18.0); Mean Corpuscular HGB CONC 34.6 g/dL (32.0-36.0); Mean Corpuscular Hemoglobin 31.7 pg (27.0-31.0); Mean Corpuscular Volume 91.7 fL (78.0-98.0); Mean Platelet Volume 8.5 fL (7.4-10.4); Platelet Count 106 thou/uL (130-400); Platelet Morphology Comment Appears Decreased; RBC Distribution Width 11.9 % (11.5-14.5); Red Blood Cell (RBC) Count 2.99 mill/uL (4.70-6.10); White Blood Cell (WBC) Count 15.6 thou/uL (4.8-10.8)
[2018-11-11] MEDS: Potassium Chloride 20 MEQ/100 ML PREMIX BAG IVPB PRN (06:56)
[2018-11-11] MEDS: Carvedilol 3.125 MG TAB PO SCH (07:04)
[2018-11-11] MEDS: Aspirin 325 MG TAB PO SCH (07:45)
[2018-11-11] MEDS: Famotidine 20 MG TAB PO SCH ×2 (07:45→21:16)
[2018-11-11] MEDS: Magnesium 2 GM/50 ML 2 GM in Premix Bag 1 BAG IVPB SCH (07:51)
[2018-11-11] MEDS: Amlodipine 5 MG TAB PO SCH (09:20)
--- NOTE | 2018-11-11 09:49 | PDOC.CTH ---
Cardiology Progress Note - Subjective Pt. seen and eval. by me this AM. Sitting up oin chair. No cardiac complaints or events. - Objective Vital Signs Temp Pulse Resp BP Pulse Ox 11/11/18 07:45 77 11/11/18 07:11 92 L 11/11/18 07:09 98.4 F 11/11/18 06:31 95 11/11/18 06:22 75 19 95 11/11/18 03:11 74 143/59 H 11/11/18 03:00 99.7 F H 11/11/18 00:00 99.2 F 11/10/18 23:33 74 20 92 L Admit Weight 193 lb 5.526 oz Weight 177 lb 14.609 oz 11/10/18 11/11/18 11/12/18 06:59 06:59 06:59 Intake Total 866.8 1200 475 Output Total 1810 2305 113 Balance -943.2 -1105 362 - Physical Examination General/Neuro: alert & oriented x3 Neck: no JVD present Lungs: CTA Heart: RRR Abdomen: NT/ND - Labs Result Diagrams: 11/11/18 04:20 11/11/18 04:20 Troponin/CKMB CK-MB (CK-2) 74.9 ng/mL (0-6.6) H* 11/08/18 07:57 Troponin I 7.777 ng/mL (< 0.028) H* 11/08/18 11:02 - Assessment/Plan 1. CAD. s/p NSTEMI, CABG with AYERS to LAD-Diag. SVG-PDA. Associated Aortic dissection benitez-op which required a hemashield repair. Pt. stable post-op 2. HTN. BP elevated. Resume Norvasc. 3. Hypercholesterolemia.. Start or resume statins. 4. Postop anemia. follow. 5. EPIFANIO. stable.
[2018-11-11] MEDS ORDERED: Furosemide 40 MG/4 ML VIAL SLOW IVP SCH ×2 (10:15→18:00)
--- NOTE | 2018-11-11 11:12 | RAD ---
PORTABLE AP CHEST: Date: 11/11/18 HISTORY: Post open heart surgery. COMPARISON: 11/10/18. FINDINGS: Right subclavian central venous catheter and mediastinal drains remain in place. There is evidence of a right apical pneumothorax. There is atelectasis at the left lung base with question of small left pleural effusion. Cardiac silh ouette is within normal limits. Pulmonary vasculature is at the upper limits of normal. There is mild atelectasis in the right mid lung zone. No other interval change. IMPRESSION: 1. Right apical pneumothorax approaching 15% of volume of right hemithorax. 2. Lines and tubes stable in place with evidence of prior CABG. 3. Atelectasis right mid lung zone and left lung base with questionable small left pleural effusion. Above findings concerning the right apical pneumothorax were discussed with Barbara, nurse in charge o f the patient's care in the CCU, on 11/11/18 at 0907 hours. CODE CR. POS: [facility]
[2018-11-11] MEDS ORDERED: Metolazone 5 MG TAB PO SCH (11:30)
--- NOTE | 2018-11-11 13:43 | PDOC.PN ---
- Subjective Encounter Start Date: 11/11/18 Encounter Start Time: 10:15 Patient seen and examined. No new complaints. No overnight events - Objective Resuscitation Status - Order Detail: 11/08/18 10:25 Resuscitation Status Routine Resuscitation Status: FULL: Full Resuscitation MAR Reviewed: Yes Vital Signs & Weight: Vital Signs (12 hours) Temp Pulse Resp BP Pulse Ox 11/11/18 13:08 71 20 100 11/11/18 12:00 97.7 F 11/11/18 07:45 77 11/11/18 07:11 92 L 11/11/18 07:09 98.4 F 11/11/18 06:31 95 11/11/18 06:22 75 19 95 11/11/18 03:11 74 143/59 H 11/11/18 03:00 99.7 F H Weight Admit Weight 193 lb 5.526 oz Weight 177 lb 14.609 oz Most Recent Monitor Data Heart Rate from ECG 66 NIBP 155/70 NIBP BP-Mean 98 Respiration from ECG 16 SpO2 100 I&O: 11/10/18 11/11/18 11/12/18 06:59 06:59 06:59 Intake Total 866.8 1200 787 Output Total 1810 2305 344 Balance -943.2 -1105 443 Result Diagrams: 11/11/18 04:20 11/11/18 04:20 Radiology Reviewed by me: Yes (chest xray reviewed) EKG Reviewed by me: Yes (nsr) Phys Exam - Physical Examination Constitutional: NAD HEENT: PERRLA, moist MMs, sclera anicteric Neck: no JVD, supple Respiratory: no wheezing, no rales, no rhonchi chest tube+ Cardiovascular: RRR, no significant murmur, no rub Gastrointestinal: soft, non-tender, no distention, positive bowel sounds Musculoskeletal: no edema, pulses present Neurological: non-focal, normal sensation Lymphatic: no nodes Psychiatric: normal affect Skin: no rash, normal turgor Dx/Plan (1) CAD (coronary artery disease) Code(s): I25.10 - ATHSCL HEART DISEASE OF [place] CORONARY ARTERY W/O ANG PCTRS Status: Acute (2) NSTEMI (non-ST elevated myocardial infarction) Code(s): I21.4 - NON-ST ELEVATION (NSTEMI) MYOCARDIAL INFARCTION Status: Acute (3) Dyslipidemia Code(s): E78.5 - HYPERLIPIDEMIA, UNSPECIFIED Status: Chronic (4) Hypertension Code(s): I10 - ESSENTIAL (PRIMARY) HYPERTENSION Status: Chronic (5) Tobacco abuse Code(s): Z72.0 - TOBACCO USE Status: Chronic (6) EPIFANIO (acute kidney injury) Code(s): N17.9 - ACUTE KIDNEY FAILURE, UNSPECIFIED Status: Acute (7) Anemia associated with acute blood loss Code(s): D62 - ACUTE POSTHEMORRHAGIC ANEMIA Status: Acute (8) S/P CABG x 3 Code(s): Z95.1 - PRESENCE OF AORTOCORONARY BYPASS GRAFT Status: Acute - Plan cont current plan of care * medication reviewed as below * symptomatic treatment * continue current management as per CV surgery * medically stable and improving * transfer to [facility] will defer to cv surgery. Review of Systems - Review of Systems ENT: negative: Ear Pain, Ear Discharge, Nose Pain, Nose Discharge, Nose Congestion, Mouth Pain, Mouth Swelling, Throat Pain, Throat Swelling, Other Respiratory: negative: Cough, Dry, Shortness of Breath, Hemoptysis, SOB with Excertion, Pleuritic Pain, Sputum, Wheezing Cardiovascular: negative: chest pain, palpitations, orthopnea, paroxysmal nocturnal dyspnea, edema, light headedness, other Gastrointestinal: negative: Nausea, Vomiting, Abdominal Pain, Diarrhea, Constipation, Melena, Hematochezia, Other Genitourinary: negative: Dysuria, Frequency, Incontinence, Hematuria, Retention , Other Musculoskeletal: negative: Neck Pain, Shoulder Pain, Arm Pain, Back Pain, Hand Pain, Leg Pain, Foot Pain, Other Skin: negative: Rash, Lesions, Zeus, Bruising, Other - Medications/Allergies Allergies/Adverse Reactions: Allergies Allergy/AdvReac Type Severity Reaction Status Date / Time No Known Drug Allergies Allergy Verified 11/08/18 15:19 Medications: Current Medications Hydrocodone Bitart/Acetaminophen ([place] 5/325) 1 tab PO Q4H PRN PRN Reason: Moderate Pain (4-6) Hydrocodone Bitart/Acetaminophen ([place] 5/325) 2 tab PO Q4H PRN PRN Reason: Severe Pain (7-10) Last Admin: 11/11/18 03:10 Dose: 2 tab Al Hydroxide/Mg Hydroxide (Maalox) 30 ml PO Q4H PRN PRN Reason: Indigestion Albuterol/Ipratropium (Duoneb) 3 ml NEB [id number] [facility] Last Admin: 11/11/18 13:08 Dose: 3 ml Albuterol/Ipratropium (Duoneb) 3 ml NEB [id number] PRN PRN Reason: SHORTNESS OF BREATH Amlodipine Besylate (Norvasc) 5 mg PO DAILY [facility] Last Admin: 11/11/18 09:20 Dose: 5 mg Aspirin (Aspirin) 325 mg PO DAILY [facility] Last Admin: 11/11/18 07:45 Dose: 325 mg Bisacodyl (Dulcolax) 10 mg PO Q12H PRN PRN Reason: Constipation Bisacodyl (Dulcolax) 10 mg [place] Q12H PRN PRN Reason: Constipation Carvedilol (Coreg) 6.25 mg PO BID-[facility] Docusate Sodium (Colace) 100 mg PO BID [facility] Famotidine (Pepcid) 20 mg PO BID [facility] Last Admin: 11/11/18 07:45 Dose: 20 mg Furosemide (Lasix) 40 mg SLOW IVP ONE [facility] Stop: 11/11/18 19:00 Guaifenesin/Dextromethorphan (Robitussin Dm) 15 ml PO Q4H PRN PRN Reason: Cough Metolazone (Zaroxolyn) 10 mg PO 0830 [facility] Stop: 11/13/18 08:31 Ondansetron HCl (Zofran) 4 mg IVP Q6H PRN PRN Reason: Nausea/Vomiting Potassium Chloride (Kcl) 20 meq IVPB PRN PRN PRN Reason: K level </= 4.0 Last Admin: 11/11/18 06:56 Dose: 20 meq Rosuvastatin Calcium (Crestor) 20 mg PO HS [facility] Last Admin: 11/10/18 20:08 Dose: 20 mg Sodium Chloride (Flush - Normal Saline) 10 ml IVF PRN PRN PRN Reason: Saline Flush Last Admin: 11/11/18 07:48 Dose: 10 ml
[2018-11-11] MEDS: Carvedilol 6.25 MG TAB PO SCH (17:14)
--- NOTE | 2018-11-11 20:09 | PRG ---
DATE OF SERVICE: 11/11/2018 SUBJECTIVE: Lakhwinder Putnam is sitting at the bedside chair with a non-rebreather on. He was in no distress. OBJECTIVE: VITAL SIGNS: Heart rate in 80s, blood pressure 139/67, and respiratory rate 22. LUNGS: Remarkably clear. I did not really detect an asymmetry to his breath sounds. HEART: Regular rhythm. ABDOMEN: Soft and nontender. He had no complaints and states that he felt much better than he felt this morning when he woke up. Chest x-ray this morning showed a 15% right apical pneumothorax, atelectasis. There was patchy in the left lung and small left effusion was seen. IMPRESSION: 1. Small pneumothorax, clinically stable. 2. Status post myocardial infarction with subsequent coronary artery bypass graft. 3. Hypertension. 4. Lipid disorder. 5. Blood loss anemia. 6. Acute on chronic kidney disease, it is stable with a creatinine of 1.1 today and hemoglobin stable at 9.5. PLAN: Continue supportive care in critical care environment. Job ID: [id number]
[2018-11-11] MEDS: Rosuvastatin 20 MG TAB PO SCH (21:16)
[2018-11-11] MEDS: Docusate 100 MG CAP PO SCH (21:16)
[2018-11-12] MEDS: HYDROcodone/Acetaminophen 5/325 mg Tablet PO PRN ×3 (01:35→13:10)
[2018-11-12 06:58] LABS: #Eosinphils 0.1 thou/uL (0.0-0.7); #Lymphocytes 2.1 thou/uL (1.20-3.40); #Monocytes 1.6 thou/uL (0.11-0.59); #Neutrophils 11.4 thou/uL (1.40-6.50); %Basophils 0.2 % (0.0-1.0); %Eosinophils 0.4 % (0.0-10.0); %Lymphocytes 13.7 % (21.0-51.0); %Monocytes 10.3 % (0.0-10.0); %Neutrophils 75.4 % (42.0-75.0); Anion Gap 10 mmol/L (10-20); BUN (Urea Nitrogen) 24 mg/dL (8.4-25.7); Calc. Creatinine Clearance 68 mL/min (70-130); Calcium 8.7 mg/dL (7.8-10.44); Carbon Dioxide 29 mmol/L (22-29); Chloride 96 mmol/L (98-107); Estimated GFR-MDRD 54; Glucose 106 mg/dL (70-105); Hemoglobin 9.6 g/dL (14.0-18.0); Mean Corpuscular HGB CONC 33.1 g/dL (32.0-36.0); Mean Corpuscular Hemoglobin 30.3 pg (27.0-31.0); Mean Corpuscular Volume 91.5 fL (78.0-98.0); Mean Platelet Volume 9.1 fL (7.4-10.4); Platelet Count 117 thou/uL (130-400); Potassium 3.3 mmol/L (3.5-5.1); RBC Distribution Width 11.6 % (11.5-14.5); Red Blood Cell (RBC) Count 3.17 mill/uL (4.70-6.10); Sodium 132 mmol/L (136-145); White Blood Cell (WBC) Count 15.1 thou/uL (4.8-10.8)
[2018-11-12] MEDS ORDERED: Potassium Chloride 20 MEQ TAB PO SCH ×2 (07:00→17:00)
[2018-11-12] MEDS: Aspirin 325 MG TAB PO SCH (09:05)
[2018-11-12] MEDS: Famotidine 20 MG TAB PO SCH ×2 (09:05→21:06)
[2018-11-12] MEDS: Amlodipine 5 MG TAB PO SCH (09:05)
[2018-11-12] MEDS: Carvedilol 6.25 MG TAB PO SCH ×2 (09:05→16:39)
[2018-11-12] MEDS: Metolazone 5 MG TAB PO SCH (09:06)
[2018-11-12] MEDS: Docusate 100 MG CAP PO SCH ×2 (09:06→21:05)
--- NOTE | 2018-11-12 09:46 | RAD ---
PORTABLE AP CHEST: Date: 11/12/18 HISTORY: Post CABG. Right-sided pneumothorax. COMPARISON: 11/11/18. FINDINGS: Right subclavian central venous catheter and mediastinal drains remain in place. The right apical pne umothorax is again seen and not significantly changed. There are lucencies seen adjacent to the aorti c arch and descending thoracic aorta, likely related to vascular markings. This is not thought to be related to pneumomediastinal gas. There is atelectasis at the left lung base with tiny left pleural e ffusion present. Cardiac silhouette is within normal limits. Median sternotomy wires are again seen. No other interval change. IMPRESSION: 1. Stable size of right apical pneumothorax. 2. Atelectasis left lung base with tiny left pleural effusion. POS: [facility]
[2018-11-12] MEDS ORDERED: Carvedilol 6.25 MG TAB PO SCH (10:00)
[2018-11-12] MEDS: Furosemide 40 MG TAB PO SCH ×2 (11:04→13:09)
--- NOTE | 2018-11-12 11:51 | PDOC.PN ---
- Subjective Encounter Start Date: 11/12/18 Encounter Start Time: 07:45 Patient seen and examined. No new complaints. No overnight events - Objective Resuscitation Status - Order Detail: 11/08/18 10:25 Resuscitation Status Routine Resuscitation Status: FULL: Full Resuscitation MAR Reviewed: Yes Vital Signs & Weight: Vital Signs (12 hours) Temp Pulse Resp BP Pulse Ox 11/12/18 09:05 82 11/12/18 08:00 98.1 F 74 16 132/63 94 L 11/12/18 07:42 96 11/12/18 07:39 82 16 93 L 11/12/18 04:00 98.2 F 75 14 150/73 H 94 L 11/12/18 01:39 79 154/70 H 11/12/18 00:00 99.0 F 78 14 177/81 H 100 Weight Admit Weight 193 lb 5.526 oz Weight 177 lb 14.609 oz Most Recent Monitor Data Heart Rate from ECG 89 NIBP 139/67 NIBP BP-Mean 91 Respiration from ECG 22 SpO2 91 I&O: 11/11/18 11/12/18 11/13/18 06:59 06:59 06:59 Intake Total 1200 937 Output Total 2305 6899 1340 Balance -1105 -1532 -1340 Result Diagrams: 11/12/18 05:14 11/12/18 05:14 Radiology Reviewed by me: Yes (chest xray reviewed) EKG Reviewed by me: Yes (nsr) Phys Exam - Physical Examination Constitutional: NAD HEENT: PERRLA, moist MMs, sclera anicteric Neck: no JVD, supple Respiratory: no wheezing, no rales, no rhonchi chest tube+ Cardiovascular: RRR, no significant murmur, no rub Gastrointestinal: soft, non-tender, no distention, positive bowel sounds Musculoskeletal: no edema, pulses present Neurological: non-focal, normal sensation, moves all 4 limbs Lymphatic: no nodes Psychiatric: normal affect, A&O x 3 Skin: no rash, normal turgor Dx/Plan (1) CAD (coronary artery disease) Code(s): I25.10 - ATHSCL HEART DISEASE OF [place] CORONARY ARTERY W/O ANG PCTRS Status: Acute (2) NSTEMI (non-ST elevated myocardial infarction) Code(s): I21.4 - NON-ST ELEVATION (NSTEMI) MYOCARDIAL INFARCTION Status: Acute (3) Dyslipidemia Code(s): E78.5 - HYPERLIPIDEMIA, UNSPECIFIED Status: Chronic (4) Hypertension Code(s): I10 - ESSENTIAL (PRIMARY) HYPERTENSION Status: Chronic (5) Tobacco abuse Code(s): Z72.0 - TOBACCO USE Status: Chronic (6) EPIFANIO (acute kidney injury) Code(s): N17.9 - ACUTE KIDNEY FAILURE, UNSPECIFIED Status: Acute (7) Anemia associated with acute blood loss Code(s): D62 - ACUTE POSTHEMORRHAGIC ANEMIA Status: Acute (8) S/P CABG x 3 Code(s): Z95.1 - PRESENCE OF AORTOCORONARY BYPASS GRAFT Status: Acute (9) Hypokalemia Code(s): E87.6 - HYPOKALEMIA Status: Acute (10) Pneumothorax on right Code(s): J93.9 - PNEUMOTHORAX, UNSPECIFIED Status: Acute Comment: small right apical, stable - Plan cont current plan of care, plan discussed w/ family * replace potassium * medication reviewed as below * symptomatic treatment * chest tube as per CV surgery * discussed with family bedside. Review of Systems - Review of Systems ENT: negative: Ear Pain, Ear Discharge, Nose Pain, Nose Discharge, Nose Congestion, Mouth Pain, Mouth Swelling, Throat Pain, Throat Swelling, Other Respiratory: negative: Cough, Dry, Shortness of Breath, Hemoptysis, SOB with Excertion, Pleuritic Pain, Sputum, Wheezing Cardiovascular: negative: chest pain, palpitations, orthopnea, paroxysmal nocturnal dyspnea, edema, light headedness, other Gastrointestinal: negative: Nausea, Vomiting, Abdominal Pain, Diarrhea, Constipation, Melena, Hematochezia, Other Genitourinary: negative: Dysuria, Frequency, Incontinence, Hematuria, Retention , Other Musculoskeletal: negative: Neck Pain, Shoulder Pain, Arm Pain, Back Pain, Hand Pain, Leg Pain, Foot Pain, Other Skin: negative: Rash, Lesions, Zeus, Bruising, Other - Medications/Allergies Allergies/Adverse Reactions: Allergies Allergy/AdvReac Type Severity Reaction Status Date / Time No Known Drug Allergies Allergy Verified 11/08/18 15:19 Medications: Current Medications Hydrocodone Bitart/Acetaminophen ([place] 5/325) 1 tab PO Q4H PRN PRN Reason: Moderate Pain (4-6) Hydrocodone Bitart/Acetaminophen ([place] 5/325) 2 tab PO Q4H PRN PRN Reason: Severe Pain (7-10) Last Admin: 11/12/18 06:27 Dose: 2 tab Al Hydroxide/Mg Hydroxide (Maalox) 30 ml PO Q4H PRN PRN Reason: Indigestion Albuterol/Ipratropium (Duoneb) 3 ml NEB [id number] [facility] Last Admin: 11/12/18 07:39 Dose: 3 ml Albuterol/Ipratropium (Duoneb) 3 ml NEB [id number] PRN PRN Reason: SHORTNESS OF BREATH Amlodipine Besylate (Norvasc) 5 mg PO DAILY [facility] Last Admin: 11/12/18 09:05 Dose: 5 mg Aspirin (Aspirin) 325 mg PO DAILY [facility] Last Admin: 11/12/18 09:05 Dose: 325 mg Bisacodyl (Dulcolax) 10 mg PO Q12H PRN PRN Reason: Constipation Bisacodyl (Dulcolax) 10 mg [place] Q12H PRN PRN Reason: Constipation Carvedilol (Coreg) 12.5 mg PO BID-[facility] Carvedilol (Coreg) 6.25 mg PO 1000 [facility] Stop: 11/12/18 12:00 Last Admin: 11/12/18 10:25 Dose: 6.25 mg Docusate Sodium (Colace) 100 mg PO BID [facility] Last Admin: 11/12/18 09:06 Dose: 100 mg Famotidine (Pepcid) 20 mg PO BID [facility] Last Admin: 11/12/18 09:05 Dose: 20 mg Furosemide (Lasix) 40 mg PO 1000,1400 [facility] Stop: 11/13/18 14:01 Last Admin: 11/12/18 11:04 Dose: 40 mg Guaifenesin/Dextromethorphan (Robitussin Dm) 15 ml PO Q4H PRN PRN Reason: Cough Metolazone (Zaroxolyn) 10 mg PO 0830 [facility] Stop: 11/13/18 08:31 Last Admin: 11/12/18 09:06 Dose: 10 mg Ondansetron HCl (Zofran) 4 mg IVP Q6H PRN PRN Reason: Nausea/Vomiting Potassium Chloride (Kcl) 20 meq IVPB PRN PRN PRN Reason: K level </= 4.0 Last Admin: 11/11/18 06:56 Dose: 20 meq Potassium Chloride (K-Dur) 40 meq PO BID-[facility] Stop: 11/13/18 17:01 Rosuvastatin Calcium (Crestor) 20 mg PO HS [facility] Last Admin: 11/11/18 21:16 Dose: 20 mg Sodium Chloride (Flush - Normal Saline) 10 ml IVF PRN PRN PRN Reason: Saline Flush Last Admin: 11/11/18 07:48 Dose: 10 ml
[2018-11-12] MEDS ORDERED: Digoxin 0.5 MG/2 ML AMP SLOW IVP SCH (19:00)
--- NOTE | 2018-11-12 19:54 | PRG ---
DATE OF SERVICE: SUBJECTIVE: Lakhwinder Putnam has no complaints. He had some outside food that he has eaten, which are surprisingly was actually fairly healthy food, chicken and vegetables. OBJECTIVE: VITAL SIGNS: Afebrile, heart rate 75, respiratory rate 17, oximetry is 90% on room air. Last blood pressure today has been 119/58. LUNGS: Clear. HEART: Regular rhythm. ABDOMEN: Soft. His chest tubes are removed. He says he feels a little weak, but he feels like he is close to being able to go home to outpatient rehab. His chest radiograph did not show any increase in his apical pneumothorax. IMPRESSION: 1. Spontaneous pneumothorax, clinically stable and asymptomatic. 2. Status post coronary artery bypass grafting. 3. History of hypertension. 4. Pack-a-day smoking up until this admission. PLAN: Continue supportive care. We will sign off. Job ID: [id number]
[2018-11-12] MEDS ORDERED: Diltiazem HCl 125 MG, Admixture Fee 1 EACH in Sodium Chloride 0.9% 100 ML IVPB SCH ×3 (20:30→20:45)
[2018-11-12] MEDS: Bisacodyl 5 MG TAB PO PRN (21:05)
[2018-11-12] MEDS: Rosuvastatin 20 MG TAB PO SCH (21:05)
[2018-11-12] MEDS: Sodium Chloride 0.9% 1,000 ML IV SCH ×2 (21:08→21:20)
[2018-11-13] MEDS: HYDROcodone/Acetaminophen 5/325 mg Tablet PO PRN (03:29)
[2018-11-13 06:51] LABS: Hemoglobin 10.5 g/dL (14.0-18.0); Mean Corpuscular Hemoglobin 31.1 pg (27.0-31.0); Mean Corpuscular Volume 91.5 fL (78.0-98.0); Mean Platelet Volume 8.9 fL (7.4-10.4); Platelet Count 165 thou/uL (130-400); RBC Distribution Width 11.4 % (11.5-14.5); Red Blood Cell (RBC) Count 3.38 mill/uL (4.70-6.10); White Blood Cell (WBC) Count 13.7 thou/uL (4.8-10.8)
[2018-11-13 07:07] LABS: Anion Gap 16 mmol/L (10-20); BUN (Urea Nitrogen) 26 mg/dL (8.4-25.7); Calc. Creatinine Clearance 66 mL/min (70-130); Calcium 9.2 mg/dL (7.8-10.44); Carbon Dioxide 34 mmol/L (22-29); Chloride 87 mmol/L (98-107); Estimated GFR-MDRD 52; Glucose 122 mg/dL (70-105); Sodium 134 mmol/L (136-145)
[2018-11-13 07:09] LABS: Potassium 2.7 mmol/L (3.5-5.1)
[2018-11-13] MEDS ORDERED: Carvedilol 6.25 MG TAB PO SCH (08:34)
[2018-11-13] MEDS ORDERED: Aspirin 325 MG TAB PO SCH (08:35)
[2018-11-13] MEDS ORDERED: Carvedilol 25 MG TAB PO SCH (09:00)
[2018-11-13] MEDS ORDERED: Digoxin 0.5 MG/2 ML AMP SLOW IVP SCH (09:00)
[2018-11-13] MEDS: Aspirin Chewable 81 MG TAB PO SCH (09:37)
[2018-11-13] MEDS: Furosemide 40 MG TAB PO SCH ×2 (09:37→13:22)
[2018-11-13] MEDS: Potassium Chloride 20 MEQ TAB PO SCH ×2 (09:38→17:06)
[2018-11-13] MEDS: Carvedilol 6.25 MG TAB PO SCH (09:39)
[2018-11-13] MEDS: Metolazone 5 MG TAB PO SCH (09:40)
[2018-11-13] MEDS: Famotidine 20 MG TAB PO SCH ×2 (09:40→20:33)
[2018-11-13] MEDS: Docusate 100 MG CAP PO SCH ×2 (09:41→20:33)
[2018-11-13 09:54] LABS: Band 3 % (5-11); Eosinophils 1 % (0-10); Lymphocytes 16 % (21-51); MDiff Complete? YES; Monocytes 6 % (0-10); Neutrophil 72 % (42-75); RBC Morphology Normal; Reactive Lymphocytes 2 % (0-10)
[2018-11-13] MEDS ORDERED: Digoxin 0.25 MG TAB PO SCH (12:00)
--- NOTE | 2018-11-13 12:01 | PDOC.PN ---
- Subjective Encounter Start Date: 11/13/18 Encounter Start Time: 07:50 Patient seen and examined. No new complaints. No overnight events - Objective Resuscitation Status - Order Detail: 11/08/18 10:25 Resuscitation Status Routine Resuscitation Status: FULL: Full Resuscitation MAR Reviewed: Yes Vital Signs & Weight: Vital Signs (12 hours) Temp Pulse Resp BP Pulse Ox 11/13/18 09:37 87 11/13/18 07:29 98 11/13/18 07:28 79 16 98 11/13/18 04:19 99.7 F H 83 20 128/58 L 94 L 11/13/18 01:51 99 11/13/18 00:51 85 16 99 Weight Admit Weight 193 lb 5.526 oz Weight 177 lb 14.609 oz Most Recent Monitor Data Heart Rate from ECG 89 NIBP 139/67 NIBP BP-Mean 91 Respiration from ECG 22 SpO2 91 I&O: 11/12/18 11/13/18 11/14/18 06:59 06:59 06:59 Intake Total 937 2080 Output Total 2467 6640 Balance -9802 -2556 Result Diagrams: 11/13/18 06:19 11/13/18 06:19 Radiology Reviewed by me: Yes (echo reviewed) EKG Reviewed by me: Yes Phys Exam - Physical Examination Constitutional: NAD HEENT: PERRLA, moist MMs, sclera anicteric Neck: no JVD, supple Respiratory: no wheezing, no rales, no rhonchi Cardiovascular: RRR, no significant murmur, no rub Gastrointestinal: soft, non-tender, no distention, positive bowel sounds Musculoskeletal: no edema, pulses present Neurological: non-focal, normal sensation Lymphatic: no nodes Psychiatric: normal affect Skin: no rash, normal turgor Dx/Plan (1) CAD (coronary artery disease) Code(s): I25.10 - ATHSCL HEART DISEASE OF [place] CORONARY ARTERY W/O ANG PCTRS Status: Acute (2) NSTEMI (non-ST elevated myocardial infarction) Code(s): I21.4 - NON-ST ELEVATION (NSTEMI) MYOCARDIAL INFARCTION Status: Acute (3) Dyslipidemia Code(s): E78.5 - HYPERLIPIDEMIA, UNSPECIFIED Status: Chronic (4) Hypertension Code(s): I10 - ESSENTIAL (PRIMARY) HYPERTENSION Status: Chronic (5) Tobacco abuse Code(s): Z72.0 - TOBACCO USE Status: Chronic (6) EPIFANIO (acute kidney injury) Code(s): N17.9 - ACUTE KIDNEY FAILURE, UNSPECIFIED Status: Acute (7) Anemia associated with acute blood loss Code(s): D62 - ACUTE POSTHEMORRHAGIC ANEMIA Status: Acute (8) S/P CABG x 3 Code(s): Z95.1 - PRESENCE OF AORTOCORONARY BYPASS GRAFT Status: Acute (9) Hypokalemia Code(s): E87.6 - HYPOKALEMIA Status: Acute (10) Pneumothorax on right Code(s): J93.9 - PNEUMOTHORAX, UNSPECIFIED Status: Acute Comment: small right apical, stable - Plan cont current plan of care, plan discussed w/ family * medication reviewed as below * symptomatic treatment * continue current treatment as per cardio. Review of Systems - Review of Systems ENT: negative: Ear Pain, Ear Discharge, Nose Pain, Nose Discharge, Nose Congestion, Mouth Pain, Mouth Swelling, Throat Pain, Throat Swelling, Other Respiratory: negative: Cough, Dry, Shortness of Breath, Hemoptysis, SOB with Excertion, Pleuritic Pain, Sputum, Wheezing Cardiovascular: negative: chest pain, palpitations, orthopnea, paroxysmal nocturnal dyspnea, edema, light headedness, other Gastrointestinal: negative: Nausea, Vomiting, Abdominal Pain, Diarrhea, Constipation, Melena, Hematochezia, Other Genitourinary: negative: Dysuria, Frequency, Incontinence, Hematuria, Retention , Other Musculoskeletal: negative: Neck Pain, Shoulder Pain, Arm Pain, Back Pain, Hand Pain, Leg Pain, Foot Pain, Other - Medications/Allergies Allergies/Adverse Reactions: Allergies Allergy/AdvReac Type Severity Reaction Status Date / Time No Known Drug Allergies Allergy Verified 11/08/18 15:19 Medications: Current Medications Hydrocodone Bitart/Acetaminophen ([place] 5/325) 1 tab PO Q4H PRN PRN Reason: Moderate Pain (4-6) Hydrocodone Bitart/Acetaminophen ([place] 5/325) 2 tab PO Q4H PRN PRN Reason: Severe Pain (7-10) Last Admin: 11/13/18 03:29 Dose: 2 tab Al Hydroxide/Mg Hydroxide (Maalox) 30 ml PO Q4H PRN PRN Reason: Indigestion Albuterol/Ipratropium (Duoneb) 3 ml NEB [id number] [facility] Last Admin: 11/13/18 07:28 Dose: 3 ml Albuterol/Ipratropium (Duoneb) 3 ml NEB [id number] PRN PRN Reason: SHORTNESS OF BREATH Aspirin (Aspirin Chewable) 81 mg PO DAILY [facility] Last Admin: 11/13/18 09:37 Dose: 81 mg Bisacodyl (Dulcolax) 10 mg PO Q12H PRN PRN Reason: Constipation Last Admin: 11/12/18 21:05 Dose: 10 mg Bisacodyl (Dulcolax) 10 mg [place] Q12H PRN PRN Reason: Constipation Carvedilol (Coreg) 25 mg PO BID-[facility] Digoxin (Lanoxin) 0.25 mg PO 1200 [facility] Stop: 11/13/18 13:00 [facility]oxin [facility] Docusate Sodium (Colace) 100 mg PO BID [facility] Last Admin: 11/13/18 09:41 Dose: Not Given Famotidine (Pepcid) 20 mg PO BID [facility] Last Admin: 11/13/18 09:40 Dose: 20 mg Furosemide (Lasix) 40 mg PO 1000,1400 [facility] Stop: 11/13/18 14:01 Last Admin: 11/13/18 09:37 Dose: 40 mg Guaifenesin/Dextromethorphan (Robitussin Dm) 15 ml PO Q4H PRN PRN Reason: Cough Ondansetron HCl (Zofran) 4 mg IVP Q6H PRN PRN Reason: Nausea/Vomiting Potassium Chloride (Kcl) 20 meq IVPB PRN PRN PRN Reason: K level </= 4.0 Last Admin: 11/11/18 06:56 Dose: 20 meq Potassium Chloride (K-Dur) 40 meq PO BID-[facility] Last Admin: 11/13/18 09:38 Dose: 40 meq Rosuvastatin Calcium (Crestor) 20 mg PO [facility] Last Admin: 11/12/18 21:05 Dose: 20 mg Sodium Chloride (Flush - Normal Saline) 10 ml IVF PRN PRN PRN Reason: Saline Flush Last Admin: 11/11/18 07:48 Dose: 10 ml
[2018-11-13] MEDS ORDERED: Amiodarone 150 MG, Admixture Fee 1 EACH in Dextrose 5% in Water 100 ML IVPB SCH (16:45)
[2018-11-13] MEDS: Amiodarone 450 MG, Admixture Fee 1 EACH in Dextrose 5% in Water 250 ML IVPB SCH (17:00)
[2018-11-13] MEDS: Carvedilol 25 MG TAB PO SCH (17:06)
[2018-11-13 18:06] LABS: ALT (SGPT) 130 U/L (8-55); AST (SGOT) 105 U/L (5-34); Albumin 3.8 g/dL (3.5-5.0); Alkaline Phosphatase 95 U/L (40-150); Bilirubin, Direct 0.4 mg/dL (0.1-0.3); Magnesium 2.1 mg/dL (1.6-2.6); Protein, Total 6.9 g/dL (6.0-8.3)
[2018-11-13 18:13] LABS: Potassium 2.6 mmol/L (3.5-5.1)
[2018-11-13] MEDS ORDERED: Potassium Chloride 40 MEQ in Premix Bag 1 BAG IVPB ONE (19:15)
[2018-11-13] MEDS ORDERED: Potassium Chloride 20 MEQ TAB PO SCH ×2 (19:15→22:00)
[2018-11-13] MEDS: Rosuvastatin 20 MG TAB PO SCH (20:32)
[2018-11-14] MEDS: Amiodarone 450 MG, Admixture Fee 1 EACH in Dextrose 5% in Water 250 ML IVPB SCH (03:01)
[2018-11-14] MEDS: HYDROcodone/Acetaminophen 5/325 mg Tablet PO PRN ×2 (04:12→11:14)
[2018-11-14 06:28] LABS: #Basophils 0.1 thou/uL (0.0-0.2); #Eosinphils 0.3 thou/uL (0.0-0.7); #Lymphocytes 1.9 thou/uL (1.20-3.40); #Monocytes 2.1 thou/uL (0.11-0.59); #Neutrophils 11.2 thou/uL (1.40-6.50); %Basophils 0.3 % (0.0-1.0); %Eosinophils 1.7 % (0.0-10.0); %Lymphocytes 12.4 % (21.0-51.0); %Monocytes 13.5 % (0.0-10.0); %Neutrophils 72.1 % (42.0-75.0); Hemoglobin 11.1 g/dL (14.0-18.0); Mean Corpuscular HGB CONC 33.8 g/dL (32.0-36.0); Mean Corpuscular Hemoglobin 30.9 pg (27.0-31.0); Mean Corpuscular Volume 91.5 fL (78.0-98.0); Mean Platelet Volume 8.9 fL (7.4-10.4); Platelet Count 192 thou/uL (130-400); RBC Distribution Width 11.4 % (11.5-14.5); Red Blood Cell (RBC) Count 3.59 mill/uL (4.70-6.10); White Blood Cell (WBC) Count 15.5 thou/uL (4.8-10.8)
[2018-11-14 06:46] LABS: Anion Gap 14 mmol/L (10-20); BUN (Urea Nitrogen) 34 mg/dL (8.4-25.7); Calc. Creatinine Clearance 53 mL/min (70-130); Calcium 9.5 mg/dL (7.8-10.44); Carbon Dioxide 37 mmol/L (22-29); Chloride 84 mmol/L (98-107); Estimated GFR-MDRD 40; Glucose 132 mg/dL (70-105); Potassium 3.2 mmol/L (3.5-5.1); Sodium 132 mmol/L (136-145)
[2018-11-14 06:47] LABS: Digoxin 0.77 ng/mL (0.8-2.0)
[2018-11-14] MEDS: Potassium Chloride 20 MEQ TAB PO SCH ×2 (08:51→16:34)
[2018-11-14] MEDS: Famotidine 20 MG TAB PO SCH ×2 (08:52→20:49)
[2018-11-14] MEDS: Carvedilol 25 MG TAB PO SCH ×2 (08:52→16:34)
[2018-11-14] MEDS: Aspirin Chewable 81 MG TAB PO SCH (08:52)
[2018-11-14] MEDS: Docusate 100 MG CAP PO SCH ×2 (08:52→20:49)
[2018-11-14] MEDS ORDERED: Digoxin 0.25 MG TAB PO SCH (09:00)
--- NOTE | 2018-11-14 11:40 | PDOC.PN ---
- Subjective Encounter Start Date: 11/14/18 Encounter Start Time: 08:00 Patient seen and examined. No new complaints. No overnight events - Objective Resuscitation Status - Order Detail: 11/08/18 10:25 Resuscitation Status Routine Resuscitation Status: FULL: Full Resuscitation MAR Reviewed: Yes Vital Signs & Weight: Vital Signs (12 hours) Temp Pulse Pulse Pulse Resp BP BP 11/14/18 09:01 74 71 160/90 H 151/73 H 11/14/18 07:25 11/14/18 07:12 61 16 11/14/18 07:10 97.9 F 61 17 11/14/18 04:00 99.1 F 62 20 11/14/18 00:08 62 20 11/14/18 00:00 68 16 BP Pulse Ox Pulse Ox Pulse Ox 11/14/18 09:01 97 99 11/14/18 07:25 94 L 11/14/18 07:12 89 L 11/14/18 07:10 151/76 H 94 L 11/14/18 04:00 162/81 H 97 11/14/18 00:08 98 11/14/18 00:00 115/62 Weight Admit Weight 193 lb 5.526 oz Weight 178 lb 4.8 oz Most Recent Monitor Data Heart Rate from ECG 89 NIBP 139/67 NIBP BP-Mean 91 Respiration from ECG 22 SpO2 91 I&O: 11/13/18 11/14/18 11/15/18 06:59 06:59 06:59 Intake Total 2080 460 Output Total 6640 1080 Balance -4560 -620 Result Diagrams: 11/14/18 06:03 11/14/18 06:03 EKG Reviewed by me: Yes Phys Exam - Physical Examination Constitutional: NAD HEENT: PERRLA, moist MMs, sclera anicteric Neck: no JVD, supple Respiratory: no wheezing, no rales, no rhonchi Cardiovascular: RRR, no significant murmur, no rub Gastrointestinal: soft, non-tender, no distention, positive bowel sounds Musculoskeletal: no edema, pulses present Neurological: non-focal, normal sensation Lymphatic: no nodes Psychiatric: normal affect Skin: no rash, normal turgor Dx/Plan (1) CAD (coronary artery disease) Code(s): I25.10 - ATHSCL HEART DISEASE OF [place] CORONARY ARTERY W/O ANG PCTRS Status: Acute (2) NSTEMI (non-ST elevated myocardial infarction) Code(s): I21.4 - NON-ST ELEVATION (NSTEMI) MYOCARDIAL INFARCTION Status: Acute (3) Dyslipidemia Code(s): E78.5 - HYPERLIPIDEMIA, UNSPECIFIED Status: Chronic (4) Hypertension Code(s): I10 - ESSENTIAL (PRIMARY) HYPERTENSION Status: Chronic (5) Tobacco abuse Code(s): Z72.0 - TOBACCO USE Status: Chronic (6) EPIFANIO (acute kidney injury) Code(s): N17.9 - ACUTE KIDNEY FAILURE, UNSPECIFIED Status: Acute (7) Anemia associated with acute blood loss Code(s): D62 - ACUTE POSTHEMORRHAGIC ANEMIA Status: Acute (8) S/P CABG x 3 Code(s): Z95.1 - PRESENCE OF AORTOCORONARY BYPASS GRAFT Status: Acute (9) Hypokalemia Code(s): E87.6 - HYPOKALEMIA Status: Acute (10) Pneumothorax on right Code(s): J93.9 - PNEUMOTHORAX, UNSPECIFIED Status: Acute Comment: small right apical, stable - Plan cont current plan of care, plan discussed w/ family * medication reviewed as below * symptomatic treatment * continue amiodaron as per cardiology * continue replace potassium * renal function getting worse, will monitor, now off lasix. Review of Systems - Review of Systems ENT: negative: Ear Pain, Ear Discharge, Nose Pain, Nose Discharge, Nose Congestion, Mouth Pain, Mouth Swelling, Throat Pain, Throat Swelling, Other Respiratory: negative: Cough, Dry, Shortness of Breath, Hemoptysis, SOB with Excertion, Pleuritic Pain, Sputum, Wheezing Cardiovascular: negative: chest pain, palpitations, orthopnea, paroxysmal nocturnal dyspnea, edema, light headedness, other Gastrointestinal: negative: Nausea, Vomiting, Abdominal Pain, Diarrhea, Constipation, Melena, Hematochezia, Other Genitourinary: negative: Dysuria, Frequency, Incontinence, Hematuria, Retention , Other Musculoskeletal: negative: Neck Pain, Shoulder Pain, Arm Pain, Back Pain, Hand Pain, Leg Pain, Foot Pain, Other Skin: negative: Rash, Lesions, Zeus, Bruising, Other - Medications/Allergies Allergies/Adverse Reactions: Allergies Allergy/AdvReac Type Severity Reaction Status Date / Time No Known Drug Allergies Allergy Verified 02/13/19 15:19 Medications: Current Medications Hydrocodone Bitart/Acetaminophen ([place] 5/325) 1 tab PO Q4H PRN PRN Reason: Moderate Pain (4-6) Hydrocodone Bitart/Acetaminophen ([place] 5/325) 2 tab PO Q4H PRN PRN Reason: Severe Pain (7-10) Last Admin: 11/14/18 11:14 Dose: 2 tab Al Hydroxide/Mg Hydroxide (Maalox) 30 ml PO Q4H PRN PRN Reason: Indigestion Albuterol/Ipratropium (Duoneb) 3 ml NEB [id number] [facility] Last Admin: 11/14/18 07:12 Dose: 3 ml Albuterol/Ipratropium (Duoneb) 3 ml NEB [id number] PRN PRN Reason: SHORTNESS OF BREATH Aspirin (Aspirin Chewable) 81 mg PO DAILY [facility] Last Admin: 11/14/18 08:52 Dose: 81 mg Bisacodyl (Dulcolax) 10 mg PO Q12H PRN PRN Reason: Constipation Last Admin: 11/12/18 21:05 Dose: 10 mg Bisacodyl (Dulcolax) 10 mg [place] Q12H PRN PRN Reason: Constipation Carvedilol (Coreg) 25 mg PO BID-[facility] Last Admin: 11/14/18 08:52 Dose: 25 mg Docusate Sodium (Colace) 100 mg PO BID [facility] Last Admin: 11/14/18 08:52 Dose: 100 mg Famotidine (Pepcid) 20 mg PO BID [facility] Last Admin: 11/14/18 08:52 Dose: 20 mg Guaifenesin/Dextromethorphan (Robitussin Dm) 15 ml PO Q4H PRN PRN Reason: Cough Amiodarone HCl 450 mg/Miscellaneous Medication 1 each/ Dextrose/Water 259 mls @ 0 mls/hr IVPB INF [facility]; Protocol Last Admin: 11/14/18 03:01 Dose: 259 mls Ondansetron HCl (Zofran) 4 mg IVP Q6H PRN PRN Reason: Nausea/Vomiting Potassium Chloride (Kcl) 20 meq IVPB PRN PRN PRN Reason: K level </= 4.0 Last Admin: 11/11/18 06:56 Dose: 20 meq Potassium Chloride (K-Dur) 40 meq PO BID-[facility] Last Admin: 11/14/18 08:51 Dose: 40 meq Rosuvastatin Calcium (Crestor) 20 mg PO HS [facility] Last Admin: 11/13/18 20:32 Dose: 20 mg Sodium Chloride (Flush - Normal Saline) 10 ml IVF PRN PRN PRN Reason: Saline Flush Last Admin: 11/13/18 19:59 Dose: 10 ml
[2018-11-14] MEDS: Rosuvastatin 20 MG TAB PO SCH (20:49)
[2018-11-14] MEDS: Amiodarone 200 MG TAB PO SCH (20:49)
[2018-11-14] MEDS: Bisacodyl 5 MG TAB PO PRN (20:55)
[2018-11-15 04:50] LABS: #Eosinphils 0.3 thou/uL (0.0-0.7); #Lymphocytes 1.6 thou/uL (1.20-3.40); #Monocytes 1.9 thou/uL (0.11-0.59); #Neutrophils 11.3 thou/uL (1.40-6.50); %Basophils 0.3 % (0.0-1.0); %Eosinophils 1.9 % (0.0-10.0); %Lymphocytes 10.8 % (21.0-51.0); %Monocytes 12.6 % (0.0-10.0); %Neutrophils 74.4 % (42.0-75.0); Hemoglobin 10.7 g/dL (14.0-18.0); Mean Corpuscular HGB CONC 33.9 g/dL (32.0-36.0); Mean Corpuscular Volume 91.3 fL (78.0-98.0); Mean Platelet Volume 8.6 fL (7.4-10.4); Platelet Count 216 thou/uL (130-400); RBC Distribution Width 11.4 % (11.5-14.5); Red Blood Cell (RBC) Count 3.46 mill/uL (4.70-6.10); White Blood Cell (WBC) Count 15.2 thou/uL (4.8-10.8)
[2018-11-15 05:10] LABS: Anion Gap 14 mmol/L (10-20); BUN (Urea Nitrogen) 31 mg/dL (8.4-25.7); Calc. Creatinine Clearance 52 mL/min (70-130); Calcium 9.3 mg/dL (7.8-10.44); Carbon Dioxide 34 mmol/L (22-29); Chloride 86 mmol/L (98-107); Estimated GFR-MDRD 40; Glucose 130 mg/dL (70-105); Potassium 3.1 mmol/L (3.5-5.1); Sodium 131 mmol/L (136-145)
[2018-11-15 05:11] LABS: ALT (SGPT) 187 U/L (8-55); AST (SGOT) 111 U/L (5-34); Albumin 3.7 g/dL (3.5-5.0); Alkaline Phosphatase 126 U/L (40-150); Bilirubin, Direct 0.4 mg/dL (0.1-0.3); Bilirubin, Total 0.9 mg/dL (0.2-1.2); Protein, Total 6.7 g/dL (6.0-8.3)
[2018-11-15] MEDS ORDERED: Potassium Chloride 40 MEQ in Premix Bag 1 BAG IVPB SCH (06:00)
[2018-11-15] MEDS: HYDROcodone/Acetaminophen 5/325 mg Tablet PO PRN (06:06)
[2018-11-15] MEDS: Guaifenesin DM 100-10/5 ML UDCUP PO SCH ×5 (06:15→20:30)
[2018-11-15] MEDS: Amiodarone 200 MG TAB PO SCH ×2 (08:57→20:29)
[2018-11-15] MEDS: Potassium Chloride 20 MEQ TAB PO SCH ×2 (08:57→17:28)
[2018-11-15] MEDS: Carvedilol 25 MG TAB PO SCH ×2 (08:57→17:28)
[2018-11-15] MEDS: Aspirin Chewable 81 MG TAB PO SCH (08:58)
[2018-11-15] MEDS: Famotidine 20 MG TAB PO SCH ×2 (08:58→20:29)
[2018-11-15] MEDS: Docusate 100 MG CAP PO SCH ×2 (08:58→20:29)
[2018-11-15] MEDS ORDERED: Sodium Chloride 0.9% 500 ML IVPB SCH (10:00)
--- NOTE | 2018-11-15 10:11 | RAD ---
PORTABLE CHEST: Date: 11-15-18 Provided Clinical History: Shortness of breath. FINDINGS: Comparison 11-12-18. Cardiac and mediastinal silhouette is unchanged in appearance. Left basilar pleural and parenchymal o pacity is redemonstrated. There has been interval resolution of previously described right apical pne umothorax without residual pneumothorax apparent. IMPRESSION: 1. Previously described right sided pneumothorax is no longer evident. 2. Persistent left basilar pleural and/or parenchymal opacity. POS: TPC
[2018-11-15] MEDS: Sodium Chloride 0.9% 1,000 ML IV SCH ×2 (10:12→20:30)
--- NOTE | 2018-11-15 11:41 | PDOC.PN ---
- Subjective Encounter Start Date: 11/15/18 Encounter Start Time: 09:00 Patient seen and examined. No overnight events today he had fever, has cough - Objective Resuscitation Status - Order Detail: 11/08/18 10:25 Resuscitation Status Routine Resuscitation Status: FULL: Full Resuscitation MAR Reviewed: Yes Vital Signs & Weight: Vital Signs (12 hours) Temp Pulse Resp BP Pulse Ox 11/15/18 07:47 94 L 11/15/18 07:45 67 20 94 L 11/15/18 07:10 98.3 F 67 17 139/66 93 L 11/15/18 04:00 100.1 F H 66 18 125/65 90 L 11/15/18 00:33 96 11/15/18 00:31 79 18 96 11/14/18 23:59 98.9 F 69 20 152/71 H 96 Weight Admit Weight 193 lb 5.526 oz Weight 178 lb 4.8 oz Most Recent Monitor Data Heart Rate from ECG 89 NIBP 139/67 NIBP BP-Mean 91 Respiration from ECG 22 SpO2 91 I&O: 11/14/18 11/15/18 11/16/18 06:59 06:59 06:59 Intake Total 460 1200 Output Total 1080 1400 Balance -620 -200 Result Diagrams: 11/15/18 04:32 11/15/18 04:32 Radiology Reviewed by me: Yes (chest xray reviewed) EKG Reviewed by me: Yes (nsr) Phys Exam - Physical Examination Constitutional: NAD HEENT: PERRLA, moist MMs, sclera anicteric Neck: no JVD, supple Respiratory: no wheezing, no rhonchi Cardiovascular: RRR, no significant murmur, no rub Gastrointestinal: soft, non-tender, no distention, positive bowel sounds Musculoskeletal: no edema, pulses present Neurological: non-focal, normal sensation, moves all 4 limbs Lymphatic: no nodes Psychiatric: normal affect, A&O x 3 Skin: no rash, normal turgor Dx/Plan (1) CAD (coronary artery disease) Code(s): I25.10 - ATHSCL HEART DISEASE OF [place] CORONARY ARTERY W/O ANG PCTRS Status: Acute (2) NSTEMI (non-ST elevated myocardial infarction) Code(s): I21.4 - NON-ST ELEVATION (NSTEMI) MYOCARDIAL INFARCTION Status: Acute (3) Dyslipidemia Code(s): E78.5 - HYPERLIPIDEMIA, UNSPECIFIED Status: Chronic (4) Hypertension Code(s): I10 - ESSENTIAL (PRIMARY) HYPERTENSION Status: Chronic (5) Tobacco abuse Code(s): Z72.0 - TOBACCO USE Status: Chronic (6) EPIFANIO (acute kidney injury) Code(s): N17.9 - ACUTE KIDNEY FAILURE, UNSPECIFIED Status: Acute (7) Anemia associated with acute blood loss Code(s): D62 - ACUTE POSTHEMORRHAGIC ANEMIA Status: Acute (8) S/P CABG x 3 Code(s): Z95.1 - PRESENCE OF AORTOCORONARY BYPASS GRAFT Status: Acute (9) Hypokalemia Code(s): E87.6 - HYPOKALEMIA Status: Acute (10) Pneumothorax on right Code(s): J93.9 - PNEUMOTHORAX, UNSPECIFIED Status: Acute Comment: small right apical, stable - Plan cont current plan of care, continue antibiotics * agree with levaquin * continue amiodaron as per cardiology * medication reviewed as below * symptomatic treatment * discussed with . * replace potassium Review of Systems - Review of Systems ENT: negative: Ear Pain, Ear Discharge, Nose Pain, Nose Discharge, Nose Congestion, Mouth Pain, Mouth Swelling, Throat Pain, Throat Swelling, Other Respiratory: negative: Cough, Dry, Shortness of Breath, Hemoptysis, SOB with Excertion, Pleuritic Pain, Sputum, Wheezing Cardiovascular: negative: chest pain, palpitations, orthopnea, paroxysmal nocturnal dyspnea, edema, light headedness, other Gastrointestinal: negative: Nausea, Vomiting, Abdominal Pain, Diarrhea, Constipation, Melena, Hematochezia, Other Genitourinary: negative: Dysuria, Frequency, Incontinence, Hematuria, Retention , Other Musculoskeletal: negative: Neck Pain, Shoulder Pain, Arm Pain, Back Pain, Hand Pain, Leg Pain, Foot Pain, Other - Medications/Allergies Allergies/Adverse Reactions: Allergies Allergy/AdvReac Type Severity Reaction Status Date / Time No Known Drug Allergies Allergy Verified 11/08/18 15:19 Medications: Current Medications Hydrocodone Bitart/Acetaminophen ([place] 5/325) 1 tab PO Q4H PRN PRN Reason: Moderate Pain (4-6) Hydrocodone Bitart/Acetaminophen ([place] 5/325) 2 tab PO Q4H PRN PRN Reason: Severe Pain (7-10) Last Admin: 11/15/18 06:06 Dose: 2 tab Al Hydroxide/Mg Hydroxide (Maalox) 30 ml PO Q4H PRN PRN Reason: Indigestion Albuterol/Ipratropium (Duoneb) 3 ml NEB [id number] [facility] Last Admin: 11/15/18 07:45 Dose: 3 ml Albuterol/Ipratropium (Duoneb) 3 ml NEB [id number] PRN PRN Reason: SHORTNESS OF BREATH Amiodarone HCl (Cordarone) 400 mg PO BID [facility] Last Admin: 11/15/18 08:57 Dose: 400 mg Aspirin (Aspirin Chewable) 81 mg PO DAILY [facility] Last Admin: 11/15/18 08:58 Dose: 81 mg Bisacodyl (Dulcolax) 10 mg PO Q12H PRN PRN Reason: Constipation Last Admin: 11/14/18 20:55 Dose: 10 mg Bisacodyl (Dulcolax) 10 mg [place] Q12H PRN PRN Reason: Constipation [facility] Last Admin: 11/15/18 08:57 Dose: 25 mg Docusate Sodium (Colace) 100 mg PO BID [facility] Last Admin: 11/15/18 08:58 Dose: 100 mg Famotidine (Pepcid) 20 mg PO BID [facility] Last Admin: 11/15/18 08:58 Dose: 20 mg Guaifenesin/Dextromethorphan (Robitussin Dm) 15 ml PO Q4H [facility] Last Admin: 11/15/18 09:00 Dose: 15 ml Sodium Chloride (Normal Saline 0.9%) 1,000 mls @ 100 mls/hr IV .Q10H [facility] Last Admin: 11/15/18 10:12 Dose: 1,000 mls Levofloxacin (Levaquin) 750 mg PO 0600 [facility] Last Admin: 11/15/18 06:15 Dose: 750 mg Potassium Chloride (Kcl) 20 meq IVPB PRN PRN PRN Reason: K level </= 4.0 Last Admin: 11/11/18 06:56 Dose: 20 meq Potassium [facility] ([facility]Dur) [facility] Last Admin: 11/15/18 08:57 Dose: 40 meq Sodium Chloride (Flush - Normal Saline) 10 ml IVF PRN PRN PRN Reason: Saline Flush Last Admin: 11/13/18 19:59 Dose: 10 ml
[2018-11-16] MEDS: Guaifenesin DM 100-10/5 ML UDCUP PO SCH ×6 (01:13→21:46)
[2018-11-16] MEDS: HYDROcodone/Acetaminophen 5/325 mg Tablet PO PRN (01:14)
[2018-11-16 04:42] LABS: #Eosinphils 0.3 thou/uL (0.0-0.7); #Lymphocytes 2.3 thou/uL (1.20-3.40); #Monocytes 1.9 thou/uL (0.11-0.59); #Neutrophils 10.1 thou/uL (1.40-6.50); %Basophils 0.2 % (0.0-1.0); %Eosinophils 2.3 % (0.0-10.0); %Lymphocytes 15.9 % (21.0-51.0); %Monocytes 12.9 % (0.0-10.0); %Neutrophils 68.8 % (42.0-75.0); Hemoglobin 9.7 g/dL (14.0-18.0); Mean Corpuscular HGB CONC 32.4 g/dL (32.0-36.0); Mean Corpuscular Hemoglobin 29.9 pg (27.0-31.0); Mean Platelet Volume 8.4 fL (7.4-10.4); Platelet Count 243 thou/uL (130-400); RBC Distribution Width 11.3 % (11.5-14.5); Red Blood Cell (RBC) Count 3.25 mill/uL (4.70-6.10); White Blood Cell (WBC) Count 14.6 thou/uL (4.8-10.8)
[2018-11-16 05:05] LABS: Anion Gap 12 mmol/L (10-20); BUN (Urea Nitrogen) 24 mg/dL (8.4-25.7); Calc. Creatinine Clearance 54 mL/min (70-130); Calcium 8.9 mg/dL (7.8-10.44); Carbon Dioxide 34 mmol/L (22-29); Chloride 92 mmol/L (98-107); Estimated GFR-MDRD 41; Glucose 106 mg/dL (70-105); Potassium 3.4 mmol/L (3.5-5.1); Sodium 135 mmol/L (136-145)
[2018-11-16] MEDS: Sodium Chloride 0.9% 1,000 ML IV SCH (05:56)
[2018-11-16] MEDS: Carvedilol 25 MG TAB PO SCH ×2 (08:52→17:17)
[2018-11-16] MEDS: Amiodarone 200 MG TAB PO SCH ×2 (08:52→21:43)
[2018-11-16] MEDS: Potassium Chloride 20 MEQ TAB PO SCH ×2 (08:52→17:17)
[2018-11-16] MEDS: Docusate 100 MG CAP PO SCH ×2 (08:53→21:44)
[2018-11-16] MEDS: Aspirin Chewable 81 MG TAB PO SCH (08:53)
[2018-11-16] MEDS: Famotidine 20 MG TAB PO SCH (08:53)
--- NOTE | 2018-11-16 12:34 | PDOC.PN ---
- Subjective Encounter Start Date: 11/16/18 Encounter Start Time: 10:00 Patient seen and examined. No new complaints. No overnight events - Objective Resuscitation Status - Order Detail: 11/08/18 10:25 Resuscitation Status Routine Resuscitation Status: FULL: Full Resuscitation MAR Reviewed: Yes Vital Signs & Weight: Vital Signs (12 hours) Temp Pulse Resp BP Pulse Ox 11/16/18 08:00 99.0 F 62 20 160/71 H 92 L 11/16/18 07:26 70 12 11/16/18 03:57 99.3 F 60 21 H 138/63 92 L Weight Admit Weight 193 lb 5.526 oz Weight 178 lb 4.8 oz Most Recent Monitor Data Heart Rate from ECG 89 NIBP 139/67 NIBP BP-Mean 91 Respiration from ECG 22 SpO2 91 I&O: 11/15/18 11/16/18 11/17/18 06:59 06:59 06:59 Intake Total 1200 4158 Output Total 1400 2075 Balance -200 2083 Result Diagrams: 11/16/18 04:22 11/16/18 04:22 EKG Reviewed by me: Yes Phys Exam - Physical Examination Constitutional: NAD HEENT: PERRLA, moist MMs, sclera anicteric Neck: no JVD, supple Respiratory: no wheezing, no rales, no rhonchi Cardiovascular: RRR, no significant murmur, no rub Gastrointestinal: soft, non-tender, no distention, positive bowel sounds Musculoskeletal: no edema, pulses present Neurological: non-focal, normal sensation Psychiatric: normal affect, A&O x 3 Skin: no rash, normal turgor Dx/Plan (1) CAD (coronary artery disease) Code(s): I25.10 - ATHSCL HEART DISEASE OF [place] CORONARY ARTERY W/O ANG PCTRS Status: Acute (2) NSTEMI (non-ST elevated myocardial infarction) Code(s): I21.4 - NON-ST ELEVATION (NSTEMI) MYOCARDIAL INFARCTION Status: Acute (3) Dyslipidemia Code(s): E78.5 - HYPERLIPIDEMIA, UNSPECIFIED Status: Chronic (4) Hypertension Code(s): I10 - ESSENTIAL (PRIMARY) HYPERTENSION Status: Chronic (5) Tobacco abuse Code(s): Z72.0 - TOBACCO USE Status: Chronic (6) EPIFANIO (acute kidney injury) Code(s): N17.9 - ACUTE KIDNEY FAILURE, UNSPECIFIED Status: Acute (7) Anemia associated with acute blood loss Code(s): D62 - ACUTE POSTHEMORRHAGIC ANEMIA Status: Acute (8) S/P CABG x 3 Code(s): Z95.1 - PRESENCE OF AORTOCORONARY BYPASS GRAFT Status: Acute (9) Hypokalemia Code(s): E87.6 - HYPOKALEMIA Status: Acute (10) Pneumothorax on right Code(s): J93.9 - PNEUMOTHORAX, UNSPECIFIED Status: Acute Comment: small right apical, stable - Plan cont current plan of care, plan discussed w/ family, continue antibiotics * DC IVF * monitor room air oxygen level with walking * medication reviewed as below * symptomatic treatment * expecting discharge tomorrow. Review of Systems - Review of Systems ENT: negative: Ear Pain, Ear Discharge, Nose Pain, Nose Discharge, Nose Congestion, Mouth Pain, Mouth Swelling, Throat Pain, Throat Swelling, Other Respiratory: negative: Cough, Dry, Shortness of Breath, Hemoptysis, SOB with Excertion, Pleuritic Pain, Sputum, Wheezing Cardiovascular: negative: chest pain, palpitations, orthopnea, paroxysmal nocturnal dyspnea, edema, light headedness, other Gastrointestinal: negative: Nausea, Vomiting, Abdominal Pain, Diarrhea, Constipation, Melena, Hematochezia, Other Genitourinary: negative: Dysuria, Frequency, Incontinence, Hematuria, Retention , Other Musculoskeletal: negative: Neck Pain, Shoulder Pain, Arm Pain, Back Pain, Hand Pain, Leg Pain, Foot Pain, Other Skin: negative: Rash, Lesions, Zeus, Bruising, Other - Medications/Allergies Allergies/Adverse Reactions: Allergies Allergy/AdvReac Type Severity Reaction Status Date / Time No Known Drug Allergies Allergy Verified 11/08/18 15:19 Medications: Current Medications Hydrocodone Bitart/Acetaminophen ([place] 5/325) 1 tab PO Q4H PRN PRN Reason: Moderate Pain (4-6) Hydrocodone Bitart/Acetaminophen ([place] 5/325) 2 tab PO Q4H PRN PRN Reason: Severe Pain (7-10) Last Admin: 11/16/18 01:14 Dose: 2 tab Al Hydroxide/Mg Hydroxide (Maalox) 30 ml PO Q4H PRN PRN Reason: Indigestion Albuterol/Ipratropium (Duoneb) 3 ml NEB [id number] [facility] Last Admin: 11/16/18 07:26 Dose: 3 ml Albuterol/Ipratropium (Duoneb) 3 ml NEB [id number] PRN PRN Reason: SHORTNESS OF BREATH Amiodarone HCl (Cordarone) 400 mg PO BID [facility] Last Admin: 11/16/18 08:52 Dose: 400 mg Aspirin (Aspirin Chewable) 81 mg PO DAILY [facility] Last Admin: 11/16/18 08:53 Dose: 81 mg Bisacodyl (Dulcolax) 10 mg PO Q12H PRN PRN Reason: Constipation Last Admin: 11/14/18 20:55 Dose: 10 mg Bisacodyl (Dulcolax) 10 mg [place] Q12H PRN PRN Reason: Constipation [facility] Last Admin: 11/16/18 08:52 Dose: 25 mg Docusate Sodium (Colace) 100 mg PO BID [facility] Last Admin: 11/16/18 08:53 Dose: 100 mg Famotidine (Pepcid) 20 mg PO BID [facility] Last Admin: 11/16/18 08:53 Dose: 20 mg Guaifenesin/Dextromethorphan (Robitussin Dm) 15 ml PO Q4H [facility] Last Admin: 11/16/18 10:42 Dose: 15 ml Levofloxacin (Levaquin) 750 mg PO 0600 [facility] Last Admin: 11/16/18 05:54 Dose: 750 mg Potassium Chloride (Kcl) 20 meq IVPB PRN PRN PRN Reason: K level </= 4.0 Last Admin: 11/11/18 06:56 Dose: 20 meq Potassium Chloride ([facility]-Dur) [facility] Last Admin: 11/16/18 08:52 Dose: 40 meq Sodium Chloride (Flush - Normal Saline) 10 ml IVF PRN PRN PRN Reason: Saline Flush Last Admin: 11/16/18 08:53 Dose: 10 ml
[2018-11-16 13:15] VITALS: BMI 22.2
[2018-11-17] MEDS: Guaifenesin DM 100-10/5 ML UDCUP PO SCH ×6 (03:19→21:52)
[2018-11-17 05:09] LABS: #Basophils 0.1 thou/uL (0.0-0.2); #Eosinphils 0.3 thou/uL (0.0-0.7); #Lymphocytes 2.7 thou/uL (1.20-3.40); #Monocytes 2.1 thou/uL (0.11-0.59); #Neutrophils 10.9 thou/uL (1.40-6.50); %Basophils 0.4 % (0.0-1.0); %Eosinophils 1.7 % (0.0-10.0); %Lymphocytes 16.7 % (21.0-51.0); %Monocytes 13.2 % (0.0-10.0); %Neutrophils 68.1 % (42.0-75.0); Mean Corpuscular HGB CONC 33.9 g/dL (32.0-36.0); Mean Corpuscular Hemoglobin 31.4 pg (27.0-31.0); Mean Corpuscular Volume 92.6 fL (78.0-98.0); Mean Platelet Volume 8.6 fL (7.4-10.4); Platelet Count 277 thou/uL (130-400); RBC Distribution Width 11.5 % (11.5-14.5); Red Blood Cell (RBC) Count 3.18 mill/uL (4.70-6.10); White Blood Cell (WBC) Count 15.9 thou/uL (4.8-10.8)
[2018-11-17 05:32] LABS: ALT (SGPT) 201 U/L (8-55); AST (SGOT) 94 U/L (5-34); Albumin 3.5 g/dL (3.5-5.0); Alkaline Phosphatase 112 U/L (40-150); Anion Gap 15 mmol/L (10-20); BUN (Urea Nitrogen) 23 mg/dL (8.4-25.7); Bilirubin, Direct 0.4 mg/dL (0.1-0.3); Bilirubin, Total 0.8 mg/dL (0.2-1.2); Calc. Creatinine Clearance 53 mL/min (70-130); Calcium 9.3 mg/dL (7.8-10.44); Carbon Dioxide 31 mmol/L (22-29); Chloride 90 mmol/L (98-107); Estimated GFR-MDRD 41; Glucose 109 mg/dL (70-105); Potassium 3.1 mmol/L (3.5-5.1); Protein, Total 6.4 g/dL (6.0-8.3); Sodium 133 mmol/L (136-145)
[2018-11-17] MEDS: Aspirin Chewable 81 MG TAB PO SCH (09:09)
[2018-11-17] MEDS: Amiodarone 200 MG TAB PO SCH ×2 (09:09→20:37)
[2018-11-17] MEDS: Carvedilol 25 MG TAB PO SCH ×2 (09:10→17:54)
[2018-11-17] MEDS: Docusate 100 MG CAP PO SCH ×2 (09:10→20:37)
[2018-11-17] MEDS: Potassium Chloride 20 MEQ TAB PO SCH ×2 (09:10→17:54)
--- NOTE | 2018-11-17 10:05 | PDOC.PN ---
- Subjective Encounter Start Date: 11/17/18 Encounter Start Time: 07:15 pt has low grade fever, has dry cough, his BP is elevated, he has no BM for 7-8 days - Objective Resuscitation Status - Order Detail: 11/08/18 10:25 Resuscitation Status Routine Resuscitation Status: FULL: Full Resuscitation MAR Reviewed: Yes Vital Signs & Weight: Vital Signs (12 hours) Temp Pulse Resp BP BP Pulse Ox 11/17/18 09:03 98.3 F 64 17 165/78 H 93 L 11/17/18 03:29 100.1 F H 65 14 151/67 H 91 L 11/16/18 23:42 91 L Weight Admit Weight 180 lb 9.6 oz Weight 178 lb 4.8 oz Most Recent Monitor Data Heart Rate from ECG 89 NIBP 139/67 NIBP BP-Mean 91 Respiration from ECG 22 SpO2 91 I&O: 11/16/18 11/17/18 11/18/18 06:59 06:59 06:59 Intake Total 4158 1500 Output Total 2075 Balance 2082 1500 Result Diagrams: 11/17/18 04:11 11/17/18 04:11 EKG Reviewed by me: Yes (nsr) Phys Exam - Physical Examination Constitutional: NAD HEENT: PERRLA, moist MMs, sclera anicteric Neck: no JVD, supple Respiratory: no wheezing, no rales, no rhonchi Cardiovascular: RRR, no significant murmur, no rub Gastrointestinal: soft, non-tender, no distention, positive bowel sounds Musculoskeletal: no edema, pulses present Neurological: non-focal, normal sensation Lymphatic: no nodes Psychiatric: normal affect, A&O x 3 Skin: no rash, normal turgor Dx/Plan (1) NSTEMI (non-ST elevated myocardial infarction) Code(s): I21.4 - NON-ST ELEVATION (NSTEMI) MYOCARDIAL INFARCTION Status: Acute (2) CAD (coronary artery disease) Code(s): I25.10 - ATHSCL HEART DISEASE OF [place] CORONARY ARTERY W/O ANG PCTRS Status: Acute (3) S/P CABG x 3 Code(s): Z95.1 - PRESENCE OF AORTOCORONARY BYPASS GRAFT Status: Acute (4) Dyslipidemia Code(s): E78.5 - HYPERLIPIDEMIA, UNSPECIFIED Status: Chronic (5) Hypertension Code(s): I10 - ESSENTIAL (PRIMARY) HYPERTENSION Status: Chronic (6) Tobacco abuse Code(s): Z72.0 - TOBACCO USE Status: Chronic (7) EPIFANIO (acute kidney injury) Code(s): N17.9 - ACUTE KIDNEY FAILURE, UNSPECIFIED Status: Acute (8) Anemia associated with acute blood loss Code(s): D62 - ACUTE POSTHEMORRHAGIC ANEMIA Status: Acute (9) Hypokalemia Code(s): E87.6 - HYPOKALEMIA Status: Acute (10) Pneumothorax on right Code(s): J93.9 - PNEUMOTHORAX, UNSPECIFIED Status: Resolved Comment: small right apical, stable (11) Constipation Code(s): K59.00 - CONSTIPATION, UNSPECIFIED Status: Acute (12) Left lower lobe pneumonia Code(s): J18.1 - LOBAR PNEUMONIA, UNSPECIFIED ORGANISM Status: Suspected - Plan cont current plan of care, continue antibiotics * medication reviewed as below * symptomatic treatment * continue levaquin * will address constipation with dulcolax suppository and if needed fleet enema * cardiac meds will defer to cardiology * surgical site look up will defer to surgeon. Review of Systems - Review of Systems Constitutional: fever ENT: negative: Ear Pain, Ear Discharge, Nose Pain, Nose Discharge, Nose Congestion, Mouth Pain, Mouth Swelling, Throat Pain, Throat Swelling, Other Respiratory: Cough, Dry. negative: Shortness of Breath, Hemoptysis, SOB with Excertion, Pleuritic Pain, Sputum, Wheezing Cardiovascular: negative: chest pain, palpitations, orthopnea, paroxysmal nocturnal dyspnea, edema, light headedness, other Gastrointestinal: Constipation. negative: Nausea, Vomiting, Abdominal Pain, Diarrhea, Melena, Hematochezia, Other Genitourinary: negative: Dysuria, Frequency, Incontinence, Hematuria, Retention , Other Musculoskeletal: negative: Neck Pain, Shoulder Pain, Arm Pain, Back Pain, Hand Pain, Leg Pain, Foot Pain, Other Skin: negative: Rash, Lesions, Zeus, Bruising, Other - Medications/Allergies Allergies/Adverse Reactions: Allergies Allergy/AdvReac Type Severity Reaction Status Date / Time No Known Drug Allergies Allergy Verified 11/08/18 15:19 Medications: Current Medications Hydrocodone Bitart/Acetaminophen ([place] 5/325) 1 tab PO Q4H PRN PRN Reason: Moderate Pain (4-6) Hydrocodone Bitart/Acetaminophen ([place] 5/325) 2 tab PO Q4H PRN PRN Reason: Severe Pain (7-10) Last Admin: 11/16/18 01:14 Dose: 2 tab Al Hydroxide/Mg Hydroxide (Maalox) 30 ml PO Q4H PRN PRN Reason: Indigestion Albuterol/Ipratropium (Duoneb) 3 ml NEB [id number] [facility] Last Admin: 11/16/18 23:42 Dose: 3 ml Albuterol/Ipratropium (Duoneb) 3 ml NEB [id number] PRN PRN Reason: SHORTNESS OF BREATH Amiodarone HCl (Cordarone) 400 mg PO BID [facility] Last Admin: 11/17/18 09:09 Dose: 400 mg Aspirin (Aspirin Chewable) 81 mg PO DAILY [facility] Last Admin: 11/17/18 09:09 Dose: 81 mg Bisacodyl (Dulcolax) 10 mg PO Q12H PRN PRN Reason: Constipation Last Admin: 11/14/18 20:55 Dose: 10 mg Bisacodyl (Dulcolax) 10 mg VT Q12H PRN PRN Reason: Constipation Last Admin: 11/17/18 09:25 Dose: 10 mg Bisacodyl (Dulcolax) 10 mg VT NOW [facility] Stop: 11/17/18 12:15 [facility] Last Admin: 11/17/18 09:10 Dose: 25 mg Docusate Sodium (Colace) 100 mg PO BID [facility] Last Admin: 11/17/18 09:10 Dose: 100 mg Guaifenesin/Dextromethorphan (Robitussin Dm) 15 ml PO Q4H [facility] Last Admin: 11/17/18 05:49 Dose: 15 ml Levofloxacin (Levaquin) 750 mg PO 0600 [facility] Last Admin: 11/17/18 05:49 Dose: 750 mg Pantoprazole Sodium (Protonix) 40 mg PO DAILY [facility] Last Admin: 11/17/18 09:09 Dose: 40 mg Potassium Chloride (Kcl) 20 meq IVPB PRN PRN PRN Reason: K level </= 4.0 Last Admin: 11/11/18 06:56 Dose: 20 meq Potassium Chloride (K-Dur) [facility] Last Admin: 11/17/18 09:10 Dose: 40 meq Sodium Chloride (Flush - Normal Saline) 10 ml IVF PRN PRN PRN Reason: Saline Flush Last Admin: 11/17/18 09:10 Dose: 10 ml
[2018-11-17] MEDS ORDERED: Bisacodyl 10 MG SUPP PR SCH (10:15)
[2018-11-17] MEDS ORDERED: Milk Of Magnesia 30 ML UDCUP PO PRN (14:08)
--- NOTE | 2018-11-17 14:32 | CON ---
DATE OF CONSULTATION: 11/17/2018 REASON FOR CONSULTATION: Mild leukocytosis with low-grade temperature elevation post cardiac bypass graft surgery. HISTORY OF PRESENT ILLNESS: A 57-year-old patient is admitted on 11/08 with a history of chronic smoking as well as hypertension with new onset of chest pain after eating lunch. Pain described as substernal, persistence, some headaches, it was quite intense and then he went to a local emergency room in [place]. His EKG showed incomplete right bundle-branch block. Troponin was elevated and was given Lovenox, aspirin, and nitroglycerin and transferred to [facility], and coronary angiogram showed triple-vessel disease and the patient underwent a coronary artery bypass graft surgery on 09/[address] Fili Malone. He had 3-vessel bypass with one left internal mammary artery. Right now, he is lying in bed, there is no distress. He had some issues with his nasal passages. He was able to blow a lot of secretions out of it, and is feeling bad at this time. He denies headaches. No visual symptoms, sore throat, odynophagia, or dysphagia. A little bit of cough , but not much. A little bit of chest pain, but not much. No abdominal pain or diarrhea. No genitourinary symptoms. No joint symptoms. No skin disorder. MEDICAL HISTORY: 1. Hypertension. 2. Chronic smoking. ALLERGY HISTORY: Negative. SOCIAL HISTORY: Chronic smoker. . No alcoholic beverage use. SURGICAL HISTORY: Herniated disk laminectomy in 1985. FAMILY HISTORY: Coronary artery disease. CURRENT MEDICATIONS: Include p.r.n. medications or inhalers, Cordarone, aspirin , Coreg, levofloxacin. PHYSICAL EXAMINATION: VITAL SIGNS: T-max 100.1, BP 120/60, pulse 60, respirations 16, and O2 saturation 93%. SKIN: Sternotomy site, which appears well without any inflammatory changes as well as the chest tube sites are well. The patient has a peripheral IV access with no inflammatory changes and a Spicer catheter has been removed. He is voiding in the urinal without problems. HEENT: No lymphadenopathy. Ocular movements conjugate. Pupils are equal. Oral cavity normal. Quite a few teeth in place with some decay and gum disease. NECK: Supple. No jugular vein distention. LUNGS: With diminished breath sounds at the bases. HEART: S1 and S2. Regular rate. No murmurs. ABDOMEN: Soft. Not distended or tender. No ascites. No bladder distention. EXTREMITIES: Pulses are 1+ in dorsalis pedis. No edema. Moves extremities equally. NEUROLOGIC: Cognitive function appears to be intact. LABORATORY DATA: White cell count ranges from 15 to 15.9, hemoglobin 10, MCV 89.2, platelets 277, and 68% neutrophils. Chemistry with a creatinine 1.74, which is a little bit higher than admission. Bilirubin 0.9, AST is 94 down from admission, albumin 3.5, and globulin 2.3. Digoxin 0.77. Microbiology with no sample submitted as of yet. Echocardiogram report demonstrated EF of 45% to 50% with mitral regurg, mild, and mild tricuspid regurg. A chest x-ray with right-sided pneumothorax, which result in left basilar pleural parenchymal opacity. ASSESSMENT: 1. Hypertension. 2. Chronic smoking. 3. [id number]-RK-[id number] elevation myocardial infarction with 3-vessel disease status post bypass graft surgery a few days ago. 4. Mild neutrophilia with low-grade temperature elevation. 5. Blunting of the left costophrenic angle with some density there. DISCUSSION: Differential diagnosis includes postcardiac injury syndrome versus a new area of atelectasis with early pneumonitis. I think it is more likely that he has either atelectasis or postcardiac injury syndrome. Consider discontinuing antimicrobial therapy and following clinically without any further intervention. May need anti-inflammatories if PCIS is confirmed. Intraabdominal inflammatory process, complications at the sternotomy site, or vascular access complications were not apparent at this point in time. Job ID: [id number] [facility]
[2018-11-17] MEDS ORDERED: Fleet Enema 133 ML BOT PR SCH (17:30)
[2018-11-18] MEDS: Guaifenesin DM 100-10/5 ML UDCUP PO SCH ×4 (02:00→15:15)
[2018-11-18] MEDS ORDERED: Magnesium Citrate 300 ML BOT PO SCH (06:00)
[2018-11-18 06:21] LABS: #Eosinphils 0.2 thou/uL (0.0-0.7); #Lymphocytes 3.1 thou/uL (1.20-3.40); #Monocytes 2.1 thou/uL (0.11-0.59); #Neutrophils 10.7 thou/uL (1.40-6.50); %Basophils 0.3 % (0.0-1.0); %Eosinophils 1.3 % (0.0-10.0); %Neutrophils 66.5 % (42.0-75.0); Hemoglobin 10.6 g/dL (14.0-18.0); Mean Corpuscular HGB CONC 32.5 g/dL (32.0-36.0); Mean Corpuscular Hemoglobin 30.2 pg (27.0-31.0); Mean Platelet Volume 8.1 fL (7.4-10.4); Platelet Count 336 thou/uL (130-400); RBC Distribution Width 11.6 % (11.5-14.5); Red Blood Cell (RBC) Count 3.52 mill/uL (4.70-6.10); White Blood Cell (WBC) Count 16.2 thou/uL (4.8-10.8)
[2018-11-18] MEDS: HYDROcodone/Acetaminophen 5/325 mg Tablet PO PRN (06:24)
[2018-11-18 06:32] LABS: Anion Gap 14 mmol/L (10-20); BUN (Urea Nitrogen) 24 mg/dL (8.4-25.7); Calc. Creatinine Clearance 52 mL/min (70-130); Calcium 9.2 mg/dL (7.8-10.44); Carbon Dioxide 33 mmol/L (22-29); Chloride 90 mmol/L (98-107); Estimated GFR-MDRD 41; Glucose 94 mg/dL (70-105); Potassium 3.5 mmol/L (3.5-5.1); Sodium 133 mmol/L (136-145)
[2018-11-18 08:00] VITALS: TEMP 98
[2018-11-18] MEDS: Potassium Chloride 20 MEQ TAB PO SCH (08:56)
[2018-11-18] MEDS: Docusate 100 MG CAP PO SCH (08:57)
[2018-11-18] MEDS: Amiodarone 200 MG TAB PO SCH (08:57)
[2018-11-18] MEDS: Aspirin Chewable 81 MG TAB PO SCH (08:57)
[2018-11-18] MEDS: Carvedilol 25 MG TAB PO SCH (09:21)
--- NOTE | 2018-11-18 10:10 | PDOC.PN ---
- Subjective Encounter Start Date: 11/18/18 Encounter Start Time: 09:00 Patient seen and examined. No new complaints. No overnight events - Objective Resuscitation Status - Order Detail: 11/08/18 10:25 Resuscitation Status Routine Resuscitation Status: FULL: Full Resuscitation MAR Reviewed: Yes Vital Signs & Weight: Vital Signs (12 hours) Temp Pulse Resp BP Pulse Ox 11/18/18 08:17 96 11/18/18 07:57 98.0 F 58 L 18 153/74 H 95 11/18/18 07:41 72 16 92 L 11/18/18 04:00 98.4 F 64 20 135/63 92 L 11/17/18 23:30 98.2 F 63 16 132/63 92 L Weight Admit Weight 180 lb 9.6 oz Weight 174 lb 3.2 oz Most Recent Monitor Data Heart Rate from ECG 89 NIBP 139/67 NIBP BP-Mean 91 Respiration from ECG 22 SpO2 91 I&O: 11/17/18 11/18/18 11/19/18 06:59 06:59 06:59 Intake Total 1500 720 Output Total 900 Balance 1500 -180 Result Diagrams: 11/18/18 05:43 11/18/18 05:43 EKG Reviewed by me: Yes Phys Exam - Physical Examination Constitutional: NAD HEENT: PERRLA, moist MMs, sclera anicteric Neck: no JVD, supple Respiratory: no wheezing, no rales, no rhonchi Cardiovascular: RRR, no significant murmur, no rub Gastrointestinal: soft, non-tender, no distention, positive bowel sounds Musculoskeletal: no edema, pulses present Neurological: non-focal, normal sensation Lymphatic: no nodes Psychiatric: normal affect Skin: no rash, normal turgor Dx/Plan (1) NSTEMI (non-ST elevated myocardial infarction) Code(s): I21.4 - NON-ST ELEVATION (NSTEMI) MYOCARDIAL INFARCTION Status: Acute (2) CAD (coronary artery disease) Code(s): I25.10 - ATHSCL HEART DISEASE OF [place] CORONARY ARTERY W/O ANG PCTRS Status: Acute (3) S/P CABG x 3 Code(s): Z95.1 - PRESENCE OF AORTOCORONARY BYPASS GRAFT Status: Acute (4) Dyslipidemia Code(s): E78.5 - HYPERLIPIDEMIA, UNSPECIFIED Status: Chronic (5) Hypertension Code(s): I10 - ESSENTIAL (PRIMARY) HYPERTENSION Status: Chronic (6) Tobacco abuse Code(s): Z72.0 - TOBACCO USE Status: Chronic (7) EPIFANIO (acute kidney injury) Code(s): N17.9 - ACUTE KIDNEY FAILURE, UNSPECIFIED Status: Acute (8) Anemia associated with acute blood loss Code(s): D62 - ACUTE POSTHEMORRHAGIC ANEMIA Status: Acute (9) Hypokalemia Code(s): E87.6 - HYPOKALEMIA Status: Acute (10) Pneumothorax on right Code(s): J93.9 - PNEUMOTHORAX, UNSPECIFIED Status: Resolved Comment: small right apical, stable (11) Constipation Code(s): K59.00 - CONSTIPATION, UNSPECIFIED Status: Acute (12) Left lower lobe pneumonia Code(s): J18.1 - LOBAR PNEUMONIA, UNSPECIFIED ORGANISM Status: Suspected - Plan cont current plan of care, continue antibiotics * wbc is slightly high but no fever, ID recommendation noted, on levaquin PO * creatinine has been stable now * medication reviewed as below * symptomatic treatment * discharge when all consultants are OK. Review of Systems - Review of Systems ENT: negative: Ear Pain, Ear Discharge, Nose Pain, Nose Discharge, Nose Congestion, Mouth Pain, Mouth Swelling, Throat Pain, Throat Swelling, Other Respiratory: negative: Cough, Dry, Shortness of Breath, Hemoptysis, SOB with Excertion, Pleuritic Pain, Sputum, Wheezing Cardiovascular: negative: chest pain, palpitations, orthopnea, paroxysmal nocturnal dyspnea, edema, light headedness, other Gastrointestinal: negative: Nausea, Vomiting, Abdominal Pain, Diarrhea, Constipation, Melena, Hematochezia, Other Genitourinary: negative: Dysuria, Frequency, Incontinence, Hematuria, Retention , Other Musculoskeletal: negative: Neck Pain, Shoulder Pain, Arm Pain, Back Pain, Hand Pain, Leg Pain, Foot Pain, Other - Medications/Allergies Allergies/Adverse Reactions: Allergies Allergy/AdvReac Type Severity Reaction Status Date / Time No Known Drug Allergies Allergy Verified 11/08/18 15:19 Medications: Current Medications Hydrocodone Bitart/Acetaminophen ([place] 5/325) 1 tab PO Q4H PRN PRN Reason: Moderate Pain (4-6) Last Admin: 11/17/18 21:52 Dose: 1 tab Hydrocodone Bitart/Acetaminophen ([place] 5/325) 2 tab PO Q4H PRN PRN Reason: Severe Pain (7-10) Last Admin: 11/18/18 06:24 Dose: 2 tab Al Hydroxide/Mg Hydroxide (Maalox) 30 ml PO Q4H PRN PRN Reason: Indigestion Albuterol/Ipratropium (Duoneb) 3 ml NEB [id number] [facility] Last Admin: 11/18/18 07:41 Dose: 3 ml Albuterol/Ipratropium (Duoneb) 3 ml NEB [id number] PRN PRN Reason: SHORTNESS OF BREATH Amiodarone HCl (Cordarone) 400 mg PO BID [facility] Last Admin: 11/18/18 08:57 Dose: 400 mg Aspirin (Aspirin Chewable) 81 mg PO DAILY [facility] Last Admin: 11/18/18 08:57 Dose: 81 mg Bisacodyl (Dulcolax) 10 mg PO Q12H PRN PRN Reason: Constipation Last Admin: 11/14/18 20:55 Dose: 10 mg Bisacodyl (Dulcolax) 10 mg [place] Q12H PRN PRN Reason: Constipation Last Admin: 11/17/18 09:25 Dose: 10 mg Carvedilol (Coreg) 25 mg PO BID[facility] Last Admin: 11/18/18 09:21 Dose: 25 mg Docusate Sodium (Colace) 100 mg PO BID [facility] Last Admin: 11/18/18 08:57 Dose: 100 mg Guaifenesin/Dextromethorphan (Robitussin Dm) 15 ml PO Q4H [facility] Last Admin: 11/18/18 06:24 Dose: 15 ml Levofloxacin (Levaquin) 750 mg PO 0600 [facility] Last Admin: 11/18/18 06:24 Dose: 750 mg Magnesium Citrate (Citrate Of Magnesia 300 Ml Bot) 300 ml PO 0600 [facility] Stop: 11/18/18 12:00 Last Admin: 11/18/18 06:29 Dose: Not Given Magnesium Hydroxide (Milk Of Magnesium) 30 ml PO DAILYPRN PRN PRN Reason: Constipation Last Admin: 11/17/18 16:21 Dose: 30 ml Pantoprazole Sodium (Protonix) 40 mg PO DAILY [facility] Last Admin: 11/18/18 08:57 Dose: 40 mg Potassium Chloride (Kcl) 20 meq IVPB PRN PRN PRN Reason: K level </= 4.0 Last Admin: 11/11/18 06:56 Dose: 20 meq Potassium Chloride (K-Dur) 40 meq PO BID[facility] Last Admin: 11/18/18 08:56 Dose: 40 meq Sodium Chloride (Flush - Normal Saline) 10 ml IVF PRN PRN PRN Reason: Saline Flush Last Admin: 11/18/18 09:01 Dose: 10 ml
[2018-11-18 13:03] VITALS: BP 115/59
--- NOTE | 2018-11-19 09:10 | DIS ---
DATE OF ADMISSION: 11/08/2018 DATE OF DISCHARGE: 11/18/2018 PRIMARY CARE PHYSICIAN: [facility] call admission. DISCHARGE DISPOSITION: Home. PRIMARY DISCHARGE DIAGNOSES: 1. [id number] elevation myocardial infarction, 3-vessel coronary artery disease, status post coronary artery bypass grafting. 2. Anemia associated with acute blood loss. 3. Acute kidney injury. 4. Severe constipation. 5. Postoperative atrial fibrillation. 6. Postoperative right pneumothorax. SECONDARY DISCHARGE DIAGNOSES: 1. Hypertension. 2. Dyslipidemia. 3. Tobacco abuse disorder. PRIMARY PROCEDURES/OPERATIONS: Cardiac catheterization was performed by Dr. Morrissey. Coronary artery bypass graft was performed by Dr. Malone. RADIOLOGICAL INVESTIGATIONS: Chest x-ray. Echocardiography showed normal EF and subsequent echocardiography showed EF of 45% to 50%. SIGNIFICANT LABORATORY DATA: Hemoglobin 10.6. INR 1.5. Creatinine 1.74. DISCHARGE MEDICATIONS: 1. Amiodarone 400 mg p.o. b.i.d. as directed by Pulmonology. 2. Aspirin 81 mg p.o. daily. 3. Coreg 25 mg p.o. b.i.d. 4. [place] 5 one or two tablets q.4 hourly p.r.n. for pain. 5. Levaquin 750 mg p.o. daily for 7 more days. CONTRAINDICATION: The patient was not given JULY inhibitor because of renal failure that will be started upon followup visit. CODE STATUS: Full code. INPATIENT [employer]: Dr. Rdz was consulted while in hospital. Dr. Nieves and was following for critical care illness. Cardiology Group and Cardiovascular Surgery were following while in hospital. DISCHARGE PLAN: Posthospital, the patient will follow up with Dr. Deluna on December 06, 2018, at 2:[address] Fili Malone on November 29, 2018, at 2:45 p.m. The patient will make an appointment with primary care physician in 1 week and he has appointment on November at 12:30 p.m. HOSPITAL COURSE: A 57-year-old male who was admitted by me on November 08, 2018. Please see my HPI for further details. On admission, he was having new onset angina, and he had significantly elevated troponin. His presentation was consistent with non-STEMI. Cardiology was consulted, and they did cardiac cath and found him with a severe coronary artery disease required CABG. Dr. Fili Malone did CABG, and postoperatively, the patient remained in ICU. He had small pneumothorax and that is why he had his chest tube a little bit longer period of time after surgery. Postoperatively, he had some blood loss anemia and acute kidney injury. Creatinine is stable. Postoperatively, the patient also had a transient atrial fibrillation, required amiodarone drip and upon discharge, amiodarone was tapered. He also developed pneumonia which was treated with levofloxacin while in the hospital. Overall, the patient is doing very well. He was not given JULY inhibitor because of renal failure that can be started after discharge. The patient was seen and examined at bedside today. Please see my progress note from today for further detail. Job ID: [id number]
== END 2018-11-18 15:13 | disposition home or self-care (01) | DRG 216 ==
LOC: ERS 07:14 → ERHOLD 08:59 → 2NO 09:10 → CCU 11-09 07:51 → 2NO 11-11 19:57
PROVIDERS: ADMIT Internal Medicine; ATTEND Internal Medicine
PROC: 4A023N7 Measurement of Cardiac Sampling and Pressure, Left Heart, Percutaneous Approach (ICD-10-PCS; principal; 2018-11-08)
PROC: 02RX0JZ Replacement of Thoracic Aorta, Ascending/Arch with Synthetic Substitute, Open Approach (ICD-10-PCS; 2018-11-08)
PROC: B2111ZZ Fluoroscopy of Multiple Coronary Arteries using Low Osmolar Contrast (ICD-10-PCS; 2018-11-08)
PROC: B2151ZZ Fluoroscopy of Left Heart using Low Osmolar Contrast (ICD-10-PCS; 2018-11-08)
PROC: 02110Z9 Bypass Coronary Artery, Two Arteries from Left Internal Mammary, Open Approach (ICD-10-PCS; 2018-11-09)
PROC: 021009W Bypass Coronary Artery, One Artery from Aorta with Autologous Venous Tissue, Open Approach (ICD-10-PCS; 2018-11-09)
PROC: 06BQ0ZZ Excision of Left Saphenous Vein, Open Approach (ICD-10-PCS; 2018-11-09)
PROC: 30233L1 Transfusion of Nonautologous Fresh Plasma into Peripheral Vein, Percutaneous Approach (ICD-10-PCS; 2018-11-09)
PROC: 30233R1 Transfusion of Nonautologous Platelets into Peripheral Vein, Percutaneous Approach (ICD-10-PCS; 2018-11-09)
PROC: 5A1221Z Performance of Cardiac Output, Continuous (ICD-10-PCS; 2018-11-09)
DX: I21.4 Non-ST elevation (NSTEMI) myocardial infarction (principal); I71.01 Dissection of thoracic aorta; J18.1 Lobar pneumonia, unspecified organism; N17.9 Acute kidney failure, unspecified; D62 Acute posthemorrhagic anemia; J93.9 Pneumothorax, unspecified; I97.88 Other intraoperative complications of the circulatory system, not elsewhere classified; I48.91 Unspecified atrial fibrillation; I25.10 Atherosclerotic heart disease of native coronary artery without angina pectoris; F17.210 Nicotine dependence, cigarettes, uncomplicated; I12.9 Hypertensive chronic kidney disease with stage 1 through stage 4 chronic kidney disease, or unspecified chronic kidney disease; N18.9 Chronic kidney disease, unspecified; I45.10 Unspecified right bundle-branch block; E78.00 Pure hypercholesterolemia, unspecified; K59.00 Constipation, unspecified; E87.6 Hypokalemia; Z82.49 Family history of ischemic heart disease and other diseases of the circulatory system; Z79.899 Other long term (current) drug therapy; Y83.2 Surgical operation with anastomosis, bypass or graft as the cause of abnormal reaction of the patient, or of later complication, without mention of misadventure at the time of the procedure; Y92.234 Operating room of hospital as the place of occurrence of the external cause
CPT/HCPCS: 36415; 36416; 36430; 71045; 80048; 80053; 80061; 80076; 80162; 82553; 82805; 82947; 83735; 84443; 84484; 85025; 85610; 85730; 86850; 86900; 86901; 90471; 90686; 93005; 93010; 93306; 93458; 93798; 94002; 94150; 94640; 94760; 99152; 99153; C1769; G0008; J0282; J0360; J0670; J1100; J1160; J1642; J1644; J1815; J1885; J1940; J2001; J2150; J2250; J2370; J2440; J2704; J2720; J3010; J3370; J3475; J3480; J3490; J7050; J7070; J7620; P9016; P9035; P9047; P9059; Q9967; S0017; S0028